=== PATIENT | male | born 1945 | race Caucasian/White ===

== ENCOUNTER 2017-08-13 13:25 | Inpatient (IN) | payer BC, MEDICARE ==
[~2017-08-13] VITALS: Ht 190.5 cm; Wt 153.8 kg
[~2017-08-13 13:25] MED LIST: ARTHROTEC 75 T1 EAC1 PO; CIPRO500 MG PO; DIOVAN320 MG PO; GLIMEPIRIDE2 MG PO; LEVOCETIRIZINE D5 MG; LEVOCETIRIZINE D5 MG PO; METFORMIN HCL1000 MG PO; METOPROLOL SUCC50 MG PO; OMEPRAZOLE40 MG PO; PREDNISONE20 MG PO; TERAZOSIN HCL5 MG PO; Z.0.DIOVAN HCT 3201 PO; Z.0.GLIMEPIRIDE2 MG PO; Z.0.GLUCOPHAGE500 MG PO; Z.0.QUINAPRIL HCL40 PO; Z.0.TERAZOSIN HCL5 M PO; ZOLPIDEM TARTRA10 MG PO
[2017-08-13] MEDS ORDERED: CYCLOBENZAPRINE HCL 10 MG TAB PO ONE (13:45)
[2017-08-13] MEDS ORDERED: KETOROLAC TROMETHAMINE 60 MG/2 ML VIAL IM ONE (13:45)
[2017-08-13] MEDS ORDERED: HYDROCODONE/APAP 7.5MG-325MG 1 EA TAB PO PRN (13:45)
[2017-08-13] MEDS ORDERED: IBUPROFEN 600 MG TAB PO STA (14:05)
[2017-08-13] MEDS ORDERED: KETOROLAC TROMETHAMINE 30 MG/ML VIAL IV STA (14:15)
[2017-08-13 14:24] LABS: BASOPHILS # (AUTO) 0.1 (0.0-0.1); BASOPHILS % 0.5 % (0.0-1.0); HEMATOCRIT 41.2 % (38.2-49.6); HEMOGLOBIN 13.9 g/dL (14.0-18.0); LYMPHOCYTES # (AUTO) 2.4 (1.0-3.2); LYMPHOCYTES % 19.7 % (18.0-39.1); MEAN CORPUSCULAR HEMOGLOBIN 30.3 pg (28-32); MEAN CORPUSCULAR HGB CONC 33.7 g/dL (31-35); MEAN CORPUSCULAR VOLUME 89.8 fL (81-99); MONOCYTES # (AUTO) 1.4 (0.2-0.8); MONOCYTES % 11.2 % (4.4-11.3); NEUTROPHILS # (AUTO) 8.2 (2.1-6.9); NEUTROPHILS % 67.7 % (38.7-80.0); PLATELET COUNT 110 x10e3/uL (140-360); RED BLOOD COUNT 4.59 x10e6/uL (4.3-5.7); RED CELL DISTRIBUTION WIDTH 15.9 % (11.7-14.4)
[2017-08-13 14:47] LABS: CALCIUM 8.6 mg/dL (8.4-10.2); CREATININE, SERUM 1.8 mg/dL (0.72-1.25)
[2017-08-13 14:56] LABS: CREATINE KINASE MB 1.2 ng/mL (0-5.0)
--- NOTE | 2017-08-13 15:14 | Diagnostic Imaging Report ---
PROCEDURE: Frontal and lateral views of the chest. COMPARISON: 07/02/12 INDICATIONS: FALL FINDINGS: Lines/tubes: None. Lungs: Limited by low lung volumes and body habitus. Mild right lower lung field hazy opacification, likely atelectasis or contusion. Pleura: There is no pleural effusion or pneumothorax. Heart and mediastinum: The heart and the mediastinum are unremarkable. Bones: No acute bony abnormality. IMPRESSION: Limited study. Mild right lower lung field hazy opacification, representing atelectasis or contusion. No definite evidence of displaced right sided rib fracture. Dictated by: John Guy M.D. on 08/13/2017 at 15:15 Electronically approved by: John Guy M.D. on 08/13/2017 at 15:15
[2017-08-13] MEDS ORDERED: AMIODARONE HCL 150MG 100 ML IV ONE (15:15)
[2017-08-13] MEDS: CEFTRIAXONE SOD 1 GM VIAL IV SCH (15:30)
--- NOTE | 2017-08-13 15:44 | Diagnostic Imaging Report ---
PROCEDURE:X-RAY LUMBAR SPINE, TWO VIEWS COMPARISON:None available. INDICATIONS:FALL FINDINGS: There are 5 lumbar-type vertebral bodies. The vertebral bodies are well-aligned without evidence of spondylolisthesis. There are no displaced fractures, lytic or blastic lesions. Severe degenerative changes of L3-L4, L4-L5, and L5-S1. There is loss of L5-S1 disc space. Posterior L5 pedicular fixating screws. Vascular calcifications. CONCLUSION: No definite evidence of acute displaced fracture or subluxation of lumbar spine. If there is high clinical concern for injury, consider obtaining CT or MRI. Severe degenerative changes of L4-S1. Dictated by: John Guy M.D. on 08/13/2017 at 15:44 Electronically approved by: John Guy M.D. on 08/13/2017 at 15:44
[2017-08-13] MEDS ORDERED: SODIUM CHLORIDE FLUSH 10 ML SYR INJ PRN (16:45)
[2017-08-13] MEDS ORDERED: ALBUTEROL SULF 0.083% NEB SOLN 3 ML NEB NEB SCH (16:45)
[2017-08-13] MEDS ORDERED: DEXTROSE 50% SYRINGE 50 ML IV PRN (17:30)
[2017-08-13] MEDS ORDERED: IPRATROPIUM BROMIDE 0.02% 2.5 ML NEB NEB SCH (18:00)
[2017-08-13] MEDS ORDERED: HYDROCHLOROTHIA25 MG PO (18:28)
[2017-08-13] MEDS ORDERED: GLUCOPHAGE850 MG PO (18:28)
[2017-08-13] MEDS ORDERED: LASIX40 MG PO (18:28)
--- OUTSIDE RECORDS SUMMARY | 2017-08-13 18:50 | XMS REPORT ---
Author Author [facility] Address Unknown Phone Unavailable Care Team Providers Care Senior Designer Name Role Phone MIKA VILLAR Unavailable Unavailable Problems This patient has no known problems. Allergies, Adverse Reactions, Alerts This patient has no known allergies or adverse reactions. Medications This patient has no known medications. Results Test Description Test Time Test Comments Text Results Atomic Results Result Comments CHEST 2 VIEWS [place] [address] Patient Name: BOO BLAKE MR #: [id number] : 1945 Age/Sex: 72/M Req # : [id number] Adm Physician: Ordered by: JASMIN MANRIQUEZ DIRECT CASTING OPERATOR Report #: [id number] Location: ER Room/Bed: Procedure: [id number] DX/CHEST 2 VIEWS Exam Date: 08/13/17 Exam Time: 1444 REPORT STATUS: Signed PROCEDURE: Frontal and lateral views of the chest. COMPARISON: 07/02/12 INDICATIONS: FALL FINDINGS: Lines/tubes: None. Lungs: Limited by low lung volumes and body habitus. Mild right lower lung field hazy opacification, likely atelectasis or contusion. Pleura: There is no pleural effusion or pneumothorax. Heart and mediastinum: The heart and the mediastinum are unremarkable. Bones: No acute bony abnormality. IMPRESSION: Limited study. Mild right lower lung field hazy opacification, representing atelectasis or contusion. No definite evidence of displaced right sided rib fracture. Dictated by: John Palomo M.D. on 08/13/2017 at 15:15 Electronically approved by: John Palomo M.D. on 08/13/2017 at 15:15 Dictated By: JOHN PALOMO MD 14 Transcribed By: MATIAS on 08/13/171514 COPY TO: JASMIN MANRIQUEZ DIRECT CASTING OPERATOR SP LUMBAR AP LATERAL 2-3VWS [place] [address] Patient Name: BOO BLAKE MR #: [id number] : 1945 Age/Sex: 72/M Req #: [id number] Adm Physician: Ordered by: JASMIN MANRIQUEZ DIRECT CASTING OPERATOR Report #: [id number] Location: ER Room/Bed: Procedure: [id number] DX/SP LUMBAR AP LATERAL 2-3VWS Exam Date: 08/13/17 Exam Time: 1430 REPORT STATUS: Signed PROCEDURE : X-RAY LUMBAR SPINE, TWO VIEWS COMPARISON: None available. INDICATIONS: FALL FINDINGS: There are 5 lumbar-type vertebral bodies. The vertebral bodies are well-aligned without evidence of spondylolisthesis. There are no displaced fractures, lytic or blastic lesions. Severe degenerative changes of L3-L4, L4-L5, and L5-S1. There is loss of L5-S1 disc space. Posterior L5 pedicular fixating screws. Vascular calcifications. CONCLUSION: No definite evidence of acute displaced fracture or subluxation of lumbar spine. If there is high clinical concern for injury, consider obtaining CT or MRI. Severe degenerative changes of L4-S1. Dictated by: John Palomo M.D. on 08/13/2017 at 15 :44 Electronically approved by: John Palomo M.D. on 08/13/2017 at 15: 44 Dictated By: JOHN PALOMO MD 1544 Transcribed By: MATIAS on 08/13/17 1544 COPY TO: JASMIN MANRIQUEZ NP
[2017-08-13] MEDS: ALBUTEROL SULF 0.083% NEB SOLN 3 ML NEB NEB SCH ×2 (19:00→23:30)
[2017-08-13] MEDS: IPRATROPIUM BROMIDE 0.02% 2.5 ML NEB NEB SCH (19:00)
[2017-08-13] MEDS ORDERED: ACETAMINOPHEN 325 MG TAB PO PRN (19:30)
[2017-08-13 20:27] LABS: BILIRUBIN,URINE NEGATIVE (NEGATIVE); CLARITY,URINE SL CLOUDY (CLEAR); COLOR,URINE YELLOW (YELLOW); KETONES,URINE TRACE (NEGATIVE); LEUKOCYTE ESTERASE ,URINE NEGATIVE (NEGATIVE); NITRITE,URINE NEGATIVE (NEGATIVE); PROTEIN,URINE DIPSTICK 2+ (NEGATIVE); URINE UROBILINOGEN 0.2 mg/dL (0.2 - 1)
[2017-08-13 20:38] LABS: AMORPHOUS SEDIMENT,URINE MODERATE (FEW); BACTERIA,URINE MODERATE /HPF; EPITHELIAL CELLS,URINE RARE /LPF
[2017-08-13] MEDS: AZITHROMYCIN 500MG/NS 250 ML 250 ML IV SCH (21:15)
[2017-08-13] MEDS: INSULIN LISPRO 100 UNIT/1 ML 3ML VIAL SQ SCH (21:49)
[2017-08-13 22:43] LABS: CREATINE KINASE MB 1.7 ng/mL (0-5.0)
[2017-08-14] VITALS (9 sets, daily range): BP systolic 109–144; BP diastolic 53–72
[2017-08-14] MEDS: IPRATROPIUM BROMIDE 0.02% 2.5 ML NEB NEB SCH ×4 (01:00→19:50)
[2017-08-14] MEDS: CEFTRIAXONE SOD 1 GM VIAL IV SCH ×2 (02:51→15:18)
[2017-08-14] MEDS: ALBUTEROL SULF 0.083% NEB SOLN 3 ML NEB NEB SCH ×5 (03:00→23:00)
[2017-08-14 07:29] LABS: CREATINE KINASE MB 2.2 ng/mL (0-5.0)
[2017-08-14] MEDS: INSULIN LISPRO 100 UNIT/1 ML 3ML VIAL SQ SCH ×4 (07:30→21:36)
[2017-08-14] MEDS: ACETAMINOPHEN 325 MG TAB PO PRN ×4 (09:21→23:35)
[2017-08-14] MEDS ORDERED: SODIUM CHLORIDE 0.9% 250ML 250 ML ONE (09:27)
[2017-08-14] MEDS: AZITHROMYCIN 500MG/NS 250 ML 250 ML IV SCH (10:29)
[2017-08-14 15:21] LABS: CREATINE KINASE MB 1.9 ng/mL (0-5.0)
[2017-08-14 15:45] LABS: BASOPHILS # (AUTO) 0.1 (0.0-0.1); BASOPHILS % 0.3 % (0.0-1.0); HEMATOCRIT 38.4 % (38.2-49.6); LYMPHOCYTES # (AUTO) 2.8 (1.0-3.2); LYMPHOCYTES % 17.5 % (18.0-39.1); MEAN CORPUSCULAR HEMOGLOBIN 30.4 pg (28-32); MEAN CORPUSCULAR HGB CONC 33.9 g/dL (31-35); MEAN CORPUSCULAR VOLUME 89.7 fL (81-99); MONOCYTES # (AUTO) 1.5 (0.2-0.8); MONOCYTES % 9.3 % (4.4-11.3); NEUTROPHILS # (AUTO) 11.5 (2.1-6.9); NEUTROPHILS % 72.2 % (38.7-80.0); RED BLOOD COUNT 4.28 x10e6/uL (4.3-5.7)
[2017-08-14] MEDS ORDERED: SODIUM CHLORIDE 0.9% 250ML 250 ML IV ONE ×2 (15:45→16:45)
[2017-08-14] MEDS ORDERED: VANCOMYCIN 1GM/NS 250 ML 250 ML IV ONE (15:45)
[2017-08-14] MEDS ORDERED: KETOROLAC TROMETHAMINE 30 MG/ML VIAL IV PRN (15:45)
[2017-08-14 15:46] LABS: PLATELET COUNT 57 x10e3/uL (140-360)
[2017-08-14] MEDS ORDERED: ACETAMINOPHEN 1000 MG/100 ML IV STA (15:49)
[2017-08-14 15:56] LABS: ANION GAP 13.9 mmol/L (8-16); CREATININE, SERUM 1.7 mg/dL (0.72-1.25); POTASSIUM 3.9 mmol/L (3.5-5.1)
[2017-08-14] MEDS ORDERED: ACETAMINOPHEN 1000 MG/100 ML IV PRN (16:00)
[2017-08-14] MEDS: SODIUM CHLORIDE 0.9% 1000ML 1,000 ML IV SCH ×2 (16:12→23:18)
[2017-08-14] MEDS ORDERED: METFORMIN HCL 850 MG TAB PO SCH (17:00)
[2017-08-14] MEDS: METFORMIN HCL 500 MG TAB PO SCH (18:01)
[2017-08-14] MEDS: GLIMEPIRIDE 2 MG TAB PO SCH (18:01)
[2017-08-14] MEDS ORDERED: ALLOPURINOL300 MG PO (18:33)
[2017-08-14] MEDS ORDERED: MONTELUKAST SOD10 MG PO (18:33)
[2017-08-14] MEDS ORDERED: TRADJENTA5 MG PO (18:33)
[2017-08-15] VITALS (7 sets, daily range): BP systolic 108–172; BP diastolic 55–70
[2017-08-15] MEDS: ALBUTEROL SULF 0.083% NEB SOLN 3 ML NEB NEB SCH ×6 (02:15→23:30)
[2017-08-15] MEDS: IPRATROPIUM BROMIDE 0.02% 2.5 ML NEB NEB SCH ×5 (02:15→19:27)
[2017-08-15] MEDS: ACETAMINOPHEN 325 MG TAB PO PRN ×5 (04:38→22:57)
[2017-08-15] MEDS: SODIUM CHLORIDE 0.9% 1000ML 1,000 ML IV SCH ×3 (05:46→21:09)
[2017-08-15] MEDS: INSULIN LISPRO 100 UNIT/1 ML 3ML VIAL SQ SCH ×4 (07:30→21:00)
[2017-08-15 07:38] LABS: BASOPHILS # (AUTO) 0.1 (0.0-0.1); BASOPHILS % 0.2 % (0.0-1.0); HEMATOCRIT 37.7 % (38.2-49.6); HEMOGLOBIN 12.7 g/dL (14.0-18.0); LYMPHOCYTES # (AUTO) 2.3 (1.0-3.2); LYMPHOCYTES % 11.3 % (18.0-39.1); MEAN CORPUSCULAR HEMOGLOBIN 30.7 pg (28-32); MEAN CORPUSCULAR HGB CONC 33.7 g/dL (31-35); MEAN CORPUSCULAR VOLUME 91.1 fL (81-99); MONOCYTES # (AUTO) 1.7 (0.2-0.8); MONOCYTES % 8.4 % (4.4-11.3); NEUTROPHILS # (AUTO) 16.1 (2.1-6.9); NEUTROPHILS % 79.2 % (38.7-80.0); RED BLOOD COUNT 4.14 x10e6/uL (4.3-5.7); RED CELL DISTRIBUTION WIDTH 16.6 % (11.7-14.4)
[2017-08-15 07:42] LABS: PLATELET COUNT 38 x10e3/uL (140-360)
[2017-08-15 07:59] LABS: ANION GAP 14.1 mmol/L (8-16); CALCIUM 7.7 mg/dL (8.4-10.2); CREATININE, SERUM 2.05 mg/dL (0.72-1.25); POTASSIUM 4.1 mmol/L (3.5-5.1)
[2017-08-15] MEDS ORDERED: QUINAPRIL HCL 20 MG TAB PO SCH (09:00)
[2017-08-15] MEDS ORDERED: NON-FORMULARY MEDICATION (Quinapril Hcl 40 MG) PO SCH (09:00)
[2017-08-15] MEDS ORDERED: VALSARTAN PO SCH (09:00)
[2017-08-15] MEDS ORDERED: HYDROCHLOROTHIAZIDE 25 MG TAB PO SCH (09:00)
[2017-08-15] MEDS ORDERED: TERAZOSIN HCL 5 MG CAP PO SCH (09:00)
[2017-08-15] MEDS ORDERED: VALSARTAN 160 MG TAB PO SCH (09:00)
[2017-08-15] MEDS ORDERED: AZITHROMYCIN 500MG/NS 250 ML 250 ML IV SCH (09:00)
[2017-08-15 09:02] LABS: ANISOCYTOSIS SLIG; HYPOCHROMASIA SLIGHT; PLATELET ESTIMATE MARKEDLY DECREASED; PLATELET MORPHOLOGY COMMENT FEW GIANT; POIKILOCYTOSIS SLIGHT; RBC MORPHOLOGY COMMENT ABNORMAL
[2017-08-15] MEDS: CEFTRIAXONE SOD 1 GM VIAL IV SCH (09:02)
[2017-08-15] MEDS: GLIMEPIRIDE 2 MG TAB PO SCH ×2 (09:10→17:20)
[2017-08-15] MEDS: METFORMIN HCL 500 MG TAB PO SCH ×2 (09:10→17:20)
[2017-08-15] MEDS: FUROSEMIDE 40 MG TAB PO SCH (09:11)
[2017-08-15] MEDS: METOPROLOL SUCCINATE 50 MG TAB XL PO SCH (09:11)
[2017-08-15 09:37] LABS: EOSINOPHILS % (MANUAL) 4 % (0-7); LYMPHOCYTES % (MANUAL) 8 % (19-48); MONOCYTES % (MANUAL) 5 % (3.4-9.0); NEUTROPHILS % (MANUAL) 83 % (40-74)
[2017-08-15] MEDS: QUINAPRIL HCL 20 MG TAB PO SCH (12:00)
--- NOTE | 2017-08-15 14:12 | Consultation ---
DATE OF CONSULTATION: August 15, 2017 INFECTIOUS DISEASE CONSULTATION HISTORY OF PRESENT ILLNESS: Christopher is a 72-year-old gentleman with a BMI of 40.6, about 325 pounds. Apparently he fell on Saturday, today is , when he was at home at about 7 o'clock in the morning. He gradually used his back and crawled little by little to the living room. His showed up about 2 o'clock. That is where she found him. So, they called 01-04-, and patient was transferred here. He does remember the fall. No loss of consciousness. He did not hit his head or any particular part of his body. He states he just dropped and his knees just pretty much gave up. Upon admission the chest x-ray, blood culture, urine culture and x-ray of the back were done. Blood culture, urine culture are negative. Chest x-ray suggested mild right lower lung field hazy opacification representing atelectasis or contusion, no definite evidence of displaced right-sided rib fracture, and his L-spine x-ray showed no definite evidence of acute displaced fracture or subluxation over the L-spine and there was a concern if you have a high clinical concern of injury, may consider C2 MRI and also showed that he has severe degenerative changes of the L4 and S1. Right now patient is in the bed, complaining of back pain, limited range of motion. Also received 1 dose of vancomycin and was placed on Zithromax and Rocephin, and followup labs from this morning showed platelet dropped to 38 with the white count jumping to 20.3. He had a 101.4 temperature. Therefore, Infectious Disease was consulted. When I talked to Mr. White this morning, he stated that he had a history of spinal fusion on his back and that is where the place that it hurts. He has no other complaints. PAST MEDICAL HISTORY: Including hypertension, diabetes, renal insufficiency. ALLERGIES: THERE ARE NO KNOWN DRUG ALLERGIES. LABORATORY STUDIES: Sodium 136, potassium 4.1, chloride 101, CO2 is 25, BUN 50, creatinine 2.05. His white count is 20.31, hemoglobin 12.7, platelet 38. His urine culture is negative. His blood culture is negative. RADIOLOGY STUDIES: As mentioned above. REVIEW OF SYSTEMS: Complaining of back pain. No nausea, vomiting, fever, chills, chest pain. No shortness of breath. PHYSICAL EXAMINATION GENERAL: Seems alert and oriented, but he seems weak and sleepy. It could have been secondary to pain medication he had received, which per my discussion with the nurse, patient received Dilaudid recently. He is comfortable in bed. Pain seems to be controlled. VITAL SIGNS: Temperature 101.4 max with a 98.6 about 11:45 this morning. Pulse is 115, respiration is 22, blood pressure is 118/56. CVS: S1/S2. CHEST: Equal expansion. No acute distress. Clear to auscultation. ABDOMEN: Soft, nontender. No distention. Morbidly obese. Bowel sounds positive 4 quadrants. HEENT: Moist. No pallor, no cyanosis. EXTREMITIES: Moves all. Some edema. Very weak. Painful movement in the bed. ASSESSMENT AND PLAN: This is a 72-year-old male who is status post fall with back pain and increasing white counts and drop in his platelet while he was on antibiotics with fever. History of diabetes, hypertension, chronic renal insufficiency. Workup so far did not show any significant abnormality except possibility of a pneumonia. Blood culture, urine cultures are negative. Clinically no acute distress. We stopped the antibiotics. Will do a CT of the T\T\L spine and also recheck the CBC, BMP for tomorrow while patient is off the antibiotics. Further management of this patient is based on further findings on the laboratory and physical examination as more information starts coming in. This case was discussed with Dr. Basurto in detail, and I want to thank you for this kind consult and allowing us to participate in the medical needs of this gentleman. Dictated by: JACLYN Ritter Job#: [id number] EV
--- NOTE | 2017-08-15 15:13 | Diagnostic Imaging Report ---
PROCEDURE: Frontal and lateral views of the chest. COMPARISON: Chest x-ray 08/13/2017. INDICATIONS: PNEUMONIA FINDINGS: Lines/tubes: None. Lungs: Lungs are hypoinflated. Worsening diffuse multifocal airspace opacities. Pleura: New small to moderate pleural effusion. Heart and mediastinum: Mild cardiomegaly. Bones: No acute bony abnormality. IMPRESSION: 1. Hypoinflated lungs. 2. New multifocal airspace opacities, which may represent multifocal pneumonia versus pulmonary edema. Dictated by: Abraham Ambrose M.D. on 08/15/2017 at 15:13 Electronically approved by: Abraham Ambrose M.D. on 08/15/2017 at 15:13
--- NOTE | 2017-08-15 16:06 | Diagnostic Imaging Report ---
History: Fall, back pain Comparison studies: X-ray of the lumbar spine 08/13/2017. X-ray of the lumbar spine 10/10/2007 Technique:: Axial were obtained through the thoracic and lumbar regions. Coronal and sagittal images reconstructed from the axial data. Intravenous contrast: None Findings: Motion artifact and patient body habitus limits evaluation of the lumbar spine. Alignment: Normal thoracic kyphosis. Normal lumbar lordosis.. No scoliosis. Soft tissues: No abnormalities.. Paraspinal muscles: Unremarkable Spinal cord: Can not be evaluated. Vertebrae: No fractures, infection or neoplasm. Posterior fusion from L4 through S1, stable from previous exam. Thoracic degenerative changes: Anteriorly projecting osteophytes. Grossly patent canal Lumbar degenerative changes: Straightening of the lumbar lordosis. Transitional vertebra at the lower lumbar spine . At L3-L4 disc degeneration diffuse disc bulge and moderate facet hypertrophy results in moderate canal stenosis and moderate bilateral foraminal narrowing. At L4-L5 disc degeneration with diffuse disc bulge and moderate bilateral facet hypertrophy results in moderate canal stenosis and severe right and moderate left foraminal narrowing. At L5-S1 diffuse disc bulge results in mild canal stenosis and moderate bilateral foraminal narrowing. 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 Degenerative changes of the bilateral SI joints. Atherosclerotic changes of the abdominal aorta. Partially visualized bilateral pleural effusions more prominent on the right. Adjacent atelectasis on the right lung base. IMPRESSION: 1. No acute fracture or subluxation of the thoracic or lumbar spine. 2. Stable degenerative changes of the lumbar spine. Signed by: DR Jamie Andrade M.D. on 08/15/2017 4:03 PM
[2017-08-15] MEDS: TERAZOSIN HCL 5 MG CAP PO SCH (21:00)
[2017-08-16] VITALS (7 sets, daily range): BP systolic 104–148; BP diastolic 44–64
[2017-08-16] MEDS ORDERED: VANCOMYCIN 1GM/NS 250 ML 500 ML IV ONE
[2017-08-16] MEDS ORDERED: CEFTRIAXONE SOD 1 GM VIAL IV SCH
[2017-08-16] MEDS ORDERED: VANCOMYCIN 1GM/NS 250 ML 250 ML IV NR (01:00)
[2017-08-16] MEDS: ALBUTEROL SULF 0.083% NEB SOLN 3 ML NEB NEB SCH ×6 (03:08→23:50)
[2017-08-16] MEDS: IPRATROPIUM BROMIDE 0.02% 2.5 ML NEB NEB SCH ×6 (03:08→23:50)
--- NOTE | 2017-08-16 03:29 | Diagnostic Imaging Report ---
EXAM: CHEST SINGLE (PORTABLE), AP 1 view INDICATION: Shortness of breath COMPARISON: PA and lateral view of the chest August 15, 2017 FINDINGS: LINES/TUBES: None LUNGS: Right lower lobe atelectasis/consolidation. Vascular congestion/interstitial edema. PLEURA: Stable right pleural effusion. HEART AND MEDIASTINUM: Stable enlargement of the cardiomediastinal silhouette. BONES AND SOFT TISSUES: No acute findings. IMPRESSION: No significant interval change. Signed by: Dr. Vanessa Curran M.D. on 08/16/2017 3:25 AM
--- NOTE | 2017-08-16 05:03 | Consultation ---
DATE OF CONSULTATION: August 15, 2017 PULMONARY MEDICINE CONSULT REFERRING PHYSICIAN: Dr. Ricarod REASON FOR REFERRAL: Pneumonia. HISTORY: Mr. Pollock is a pleasant 72-year-old gentleman who presented to emergency room on August 13, 2017. Patient with back pain. He also had some cough, associated with shortness of breath and fevers. Fevers have been recorded here in the hospital easily and on multiple occasions including to 103.2 today. Patient with intermittent encephalopathy and altered mental status. However, there was no head or neck pain when he came to emergency room. Chest x-ray showing difficult assessment, but atelectasis versus infiltrate at the base. Patient continued to have fevers while he was an inpatient. His white count was originally 12,000, but it has risen to 20,000. His creatinine was initially 1.8 and it has risen to 2.0 in the interim. Blood cultures no growth times 48 hours. At this point, I am consulted. Chest x-ray was repeated and demonstrated worsening of the infiltrate and probable effusion. Computed tomograms of thoracic spine confirmed presence of what looks like probable complex effusion evolving as well as pneumonia. 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 MEDICATIONS: Medication list reviewed per record. It includes allopurinol, furosemide, glimepiride, hydrochlorothiazide, Tradjenta, metformin, metoprolol, quinapril, terazosin, valsartan. No citation of any immunosuppressive medication at this time, although it is clear that at some point in the past he was on prednisone. ALLERGIES: NO KNOWN DRUG ALLERGIES. SOCIAL HISTORY: Patient reportedly seems to get smoke in the past, although he is confused and cannot provide full history. Other notes suggest he is a nonsmoker. No heavy drinking known. No drugs. 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 FAMILY HISTORY: Noncontributory. REVIEW OF SYSTEMS: Cannot get reliably as he is altered. OBJECTIVE: VITAL SIGNS: Noted as reported. Heart rate often 100s. GENERAL: No distress, oriented x1 only. HEENT: Normocephalic, atraumatic. NECK: Supple. Throat midline. LUNGS: Bilateral air entry, limited air entry, limited effort. CARDIOVASCULAR: S1, S2. No murmurs, rubs, or gallops. ABDOMEN: Soft, obese, nontender. EXTREMITIES: No clubbing, no cyanosis, there is some edema. INTEGUMENT: No rash. No necrosis. LABS: 21 white count, 37 hematocrit, platelets falling to 38,000. 4.1 potassium, 25 bicarbonate, 50 BUN, creatinine 2.05. IMPRESSION AND PLAN: 1. Severe pneumonia, likely atypical type. 2. Evolved and complicated pleural effusion. 3. Splenectomy state. 4. Reported idiopathic thrombocytopenic purpura. 5. Diabetes. 6. Hypertension. 7. Primary hyperparathyroidism. 8. History of obesity. 9. Degenerative joint disease of back. Give low-dose intravenous fluid only, limit to lowest dose to preserve urine in kidneys. High-dose antibiotics indicated. Patient very large, recommend surgical consult for chest tube under anesthesia. Patient may need future decortication based on chest tube results. Deep venous thrombosis prophylaxis. Patient with high mortality condition if this cannot be reversed. Thank you very much, Dr. Ricardo for this consult. Do not hesitate to contact me if I can help in any way. Job#: [id number] DR AHMADI
[2017-08-16] MEDS: ACETAMINOPHEN 325 MG TAB PO PRN (05:05)
[2017-08-16 06:54] LABS: BASOPHILS # (AUTO) 0.1 (0.0-0.1); BASOPHILS % 0.4 % (0.0-1.0); HEMATOCRIT 39.4 % (38.2-49.6); HEMOGLOBIN 12.6 g/dL (14.0-18.0); LYMPHOCYTES # (AUTO) 3.4 (1.0-3.2); LYMPHOCYTES % 20.3 % (18.0-39.1); MEAN CORPUSCULAR HEMOGLOBIN 30.3 pg (28-32); MEAN CORPUSCULAR VOLUME 94.7 fL (81-99); MONOCYTES # (AUTO) 1.2 (0.2-0.8); MONOCYTES % 7.2 % (4.4-11.3); NEUTROPHILS # (AUTO) 11.9 (2.1-6.9); RED BLOOD COUNT 4.16 x10e6/uL (4.3-5.7); RED CELL DISTRIBUTION WIDTH 17.2 % (11.7-14.4)
[2017-08-16 06:59] LABS: PLATELET COUNT 25 x10e3/uL (140-360)
[2017-08-16 07:12] LABS: INR 1.01; PROTHROMBIN TIME 12.5 seconds (11.9-14.5)
[2017-08-16 07:20] LABS: ALBUMIN 2.2 g/dL (3.5-5.0); ALBUMIN/GLOBULIN RATIO 0.6 (0.8-2.0); ANION GAP 13.1 mmol/L (8-16); CALCIUM 7.4 mg/dL (8.4-10.2); CREATININE, SERUM 2.26 mg/dL (0.72-1.25); MAGNESIUM 1.7 MG/DL (1.3-2.1); PHOSPHORUS 4.2 MG/DL (2.3-4.7); POTASSIUM 4.1 mmol/L (3.5-5.1)
[2017-08-16] MEDS: INSULIN LISPRO 100 UNIT/1 ML 3ML VIAL SQ SCH ×4 (07:30→21:00)
[2017-08-16] MEDS: METFORMIN HCL 500 MG TAB PO SCH ×2 (08:00→17:00)
[2017-08-16] MEDS: GLIMEPIRIDE 2 MG TAB PO SCH ×2 (08:00→17:00)
[2017-08-16] MEDS: METOPROLOL SUCCINATE 50 MG TAB XL PO SCH (09:00)
[2017-08-16] MEDS: FUROSEMIDE 40 MG TAB PO SCH (09:00)
--- NOTE | 2017-08-16 10:38 | Diagnostic Imaging Report ---
Exam: Head CT without contrast History: Confusion Comparison studies: None Technique: Axial images were obtained from the skull base to the vertex. Coronal and sagittal images reconstructed from the axial data. Intravenous contrast: None Findings: Scalp: No abnormalities. Bones: No fractures, blastic or lytic lesions. Brain sulci: Mildly prominent. Ventricles: Normal in size and configuration. No hydrocephalus. Extra-axial spaces: Mildly prominent extra-axial space of CSF density at the posterior left frontal convexity near the vertex may be an incidental congenital arachnoid cyst. No other mass or fluid collection. Parenchyma: A few subtle hypodensities in the supratentorial white matter are nonspecific but most compatible with chronic small vessel ischemic changes. No mass, acute hemorrhage or acute or chronic cortical vascular insults. Sellar/suprasellar region: No abnormalities. Craniocervical junction: Patent foramen magnum. No Chiari one malformation. Incidental findings: Atherosclerotic calcifications in the carotid siphons and left intradural vertebral artery. Intraocular lens replacements related to previous cataract surgery. Right maxillary sinus alveolar recess retention cyst. IMPRESSION: No acute abnormalities. Chronic findings: 1. Mild age-related generalized volume loss. 2. Mild supratentorial microvascular ischemic changes. Signed by: Dr. Spencer Razo M.D. on 08/16/2017 10:34 AM
--- NOTE | 2017-08-16 11:09 | Diagnostic Imaging Report ---
PROCEDURE: CT CHEST WITHOUT CONTRAST CT scan of the chest WITHOUT intravenous contrast, using standard protocol. TECHNIQUE: The chest was scanned utilizing a multidetector helical scanner from the apex to the level of the adrenal glands. No IV contrast was administered. Coronal and sagittal multiplanar reformations were obtained. DLP: 1892.86 mGy-cm COMPARISON: None. INDICATIONS: PNEUMONIA FINDINGS: Lines/tubes: None. Lungs and Airways: Moderate pulmonary edema. There is a right lower lobe consolidation. Pleura: There is a moderate right pleural effusion. Heart and mediastinum: Only the left lobe and isthmus of the thyroid gland is visualized. No significant mediastinal, hilar or axillary lymphadenopathy is seen. The heart is enlarged. There is aortic valvular calcification as well as mitral annulus calcification. Calcification within the aorta. Soft tissues: Normal. Abdomen: The spleen is absent. Bones: Degenerative changes of the spine. IMPRESSION: 1. Cardiomegaly with moderate interstitial pulmonary edema. 2. Right lower lobe consolidation. 3. Moderate right pleural effusion. Jose Alejandro Doshi D.O. Dictated by: Jose Alejandro Doshi D.O. on 08/16/2017 at 11:10 Electronically approved by: Jose Alejandro Doshi D.O. on 08/16/2017 at 11:10
--- NOTE | 2017-08-16 11:41 | Diagnostic Imaging Report ---
EXAM: CT Abdomen WITHOUT contrast INDICATION: \S\R/O SPLENECTOMY \[id number] \S\[id number] \S\Y COMPARISON: None available. CT abdomen/pelvis report dated 08/02/2011 was reviewed. TECHNIQUE: Abdomen was scanned utilizing a multidetector helical scanner from the lung base to the iliac crest without administration of IV contrast. Absence of intravenous contrast decreases sensitivity for detection of focal lesions and vascular pathology. Coronal and sagittal reformations were obtained. Routine protocol was performed. IV CONTRAST: None ORAL CONTRAST: Water COMPLICATIONS: None RADIATION DOSE: Total DLP: 1892.86 mGy*cm Estimated effective dose: (DLP x 0.015 x size factor) mSv CTDIvol has been reviewed. It is below the limits set by the Radiation Protocol Committee (RPC). FINDINGS: Limited study due to streak artifacts and lack of intravenous contrast. LINES and TUBES: None. LOWER THORAX: Bibasilar consolidation, right more than left. Possible trace right pleural effusion. Heart is borderline enlarged. HEPATOBILIARY: Hepatomegaly. Unenhanced liver is unremarkable. No biliary ductal dilation. GALLBLADDER: Surgically absent. SPLEEN: Absent. PANCREAS: No focal masses or ductal dilatation. ADRENALS: Approximately 3.6 x 2.8 cm fat-containing left adrenal lesion, representing a myelolipoma. No right adrenal nodule. KIDNEYS/URETERS: Atrophic left kidney. No hydronephrosis. Left renal vascular calcifications. Limited for evaluation of renal parenchyma without intravenous contrast. There is a 6 cm calculus within left renal pelvis (series 6, image 45). Bilateral nonspecific mild perinephric stranding. GI TRACT: Bowel loops are unremarkable. No small bowel obstruction. LYMPH NODES: No lymphadenopathy. VESSELS: Mild atherosclerotic desiccation of abdominal aorta. PERITONEUM / RETROPERITONEUM: No free air or fluid. BONES: Degenerative changes of lumbar spine. Partially visualized posterior sacral fusion. SOFT TISSUES: Unremarkable. IMPRESSION: 1. Bibasilar lung consolidations, right more than left, representing atelectasis and/or aspiration/pneumonia. 2. Absent spleen. 3. Fat-containing left adrenal mass, representing a myelolipoma. 4. Atrophic left kidney. There is a 6 mm nonobstructive calculus within left renal pelvis. Signed by: Dr. John Guy MD on 08/16/2017 11:38 AM
[2017-08-16 11:56] LABS: ABG PH 7.19 (7.31-7.41)
[2017-08-16 11:57] LABS: ABG PCO2 66 mmHg (41-51)
[2017-08-16 11:58] LABS: ABG HCO3 25 mmol/L (23-28); ABG PO2 90 mmHg (80-105)
[2017-08-16] MEDS: QUINAPRIL HCL 20 MG TAB PO SCH (12:00)
[2017-08-16] MEDS ORDERED: MEROPENEM 500 MG VIAL IV SCH (12:30)
[2017-08-16 13:33] LABS: ABG PH 7.22 (7.31-7.41)
[2017-08-16 13:34] LABS: ABG HCO3 25 mmol/L (23-28); ABG PCO2 60 mmHg (41-51); ABG PO2 184 mmHg (80-105)
[2017-08-16] MEDS ORDERED: ACETAMINOPHEN 650 MG SUPP PR PRN (14:15)
[2017-08-16] MEDS ORDERED: VANCOMYCIN 1GM/NS 250 ML 250 ML IV SCH (16:15)
[2017-08-16] MEDS: METHYLPREDNISOLONE SOD SUCC 40 MG/ML VIAL IV SCH (17:00)
[2017-08-16] MEDS: AMPICILLIN SOD 2 GM/NS 100ML 100 ML IV SCH (17:00)
[2017-08-16] MEDS: CEFTRIAXONE SOD 1 GM VIAL IV SCH (17:02)
[2017-08-16] MEDS: ACYCLOVIR SODIUM 750 MG in SODIUM CHLORIDE 0.9% 250ML 250 ML IV SCH (17:45)
[2017-08-16] MEDS ORDERED: AZITHROMYCIN 500MG/NS 250 ML 250 ML IV SCH (18:00)
--- NOTE | 2017-08-16 18:55 | Progress Note ---
DATE: INFECTIOUS DISEASE PROGRESS NOTE SUBJECTIVE: Mr. Pollock, who came in Saturday, we did see him yesterday and he was alert and oriented yesterday, but apparently today he is lethargic. I met with the and had the extensive history. Apparently the patient has been sick for the last week since Saturday with fever and chills. Then he had fever Saturday, fever Saturday and Saturday. Saturday when she left he was okay, but she came back and he was on the floor. He told her to call . So, he came to the hospital Saturday, when he was brought in. We were consulted on August 15. At that time he was alert, oriented, and his workup was suggestive of pneumonia, but today he is lethargic and when I examined him today, his neck is stiff. His laboratory data, also the problem is his blood cultures are negative so far but his platelet is 25. I did discuss with Dr. Elizabeth, and when he first came his platelet was 110, dropped to 25 today. His PT is 12.5, his INR 1.1 and PTT is 36. OBJECTIVE GENERAL: He is lethargic. VITAL SIGNS: Stable. Temperature 100.1. T-max 103.2. HEENT: Normocephalic. NECK: Stiff. CHEST: A few crackles. HEART: S1 and S2. No S3 or S4, no murmur. ABDOMEN: Soft. IMPRESSION 1. 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 Will put him on vancomycin, Rocephin, ampicillin and acyclovir. We need an LP. However, his platelet is 25. Discussed with Dr. Elizabeth. We can transfuse him and we need to get up to more than 100, which is going to be an issue. I am going to add some steroid. 2. He also has pneumonia on the CT of his abdomen, which could be aspiration versus that is what the problem is. 3. Acute tubular necrosis on chronic kidney disease. 4. Obesity. 5. Status post splenectomy. 6. Idiopathic thrombocytopenic purpura. 7. Diabetes. 8. Hypertension. 9. Hyperparathyroidism. Will follow. Job#: [id number] EV
[2017-08-16] MEDS ORDERED: ACYCLOVIR SODIUM 750 MG in SODIUM CHLORIDE 0.9% 250ML 250 ML IV SCH (21:00)
[2017-08-16] MEDS: TERAZOSIN HCL 5 MG CAP PO SCH (21:00)
[2017-08-16] MEDS: SODIUM CHLORIDE 0.9% 1000ML 1,000 ML IV SCH (21:59)
[2017-08-16] MEDS ORDERED: AMPICILLIN SOD 2 GM/NS 100ML 100 ML IV SCH (22:00)
[2017-08-16] MEDS ORDERED: AMPICILLIN SOD 2 GM/NS 100ML 2 G in AMPICILLIN SOD 2 GM/NS 100ML 100 ML IV SCH (22:00)
--- NOTE | 2017-08-16 23:52 | Progress Note ---
DATE: August 16, 2017 PULMONARY MEDICINE PROGRESS NOTE SUBJECTIVE: Mr. Pollock was seen and examined at bedside. He continues to have worsening encephalopathy. Multiple blood gas analyses were performed showing continued hypercapnic respiratory failure and this intermittent encephalopathy. Discussion made after CT scan was performed where platelets were seemed to be dropped. Consideration for chest tube versus thoracentesis pleural effusion. Patient with 91% oxygen saturation on 3 liters per minute, flow early before BiPAP was started. REVIEW OF SYSTEMS: Cannot get as he is altered. OBJECTIVE: VITAL SIGNS: Afebrile, vital signs noted per record. Fevers mildly improved hopefully. GENERAL: Patient looked very bad, encephalopathic . LUNGS: Limited air entry. EXTREMITIES: There was leg edema. LABS: 55 BUN, 2.3 creatinine. 24 bicarbonate, 4.1 potassium. 17 white count, 39 hematocrit, and 25,000 platelets. IMPRESSION AND PLAN: 1. Typical pneumonia. 2. Parapneumonic pleural effusion, evolving. 3. Possible meningitis. 4. Encephalopathy. 5. Acute respiratory failure. 6. Severe obesity. 7. Zeliw-gf-wjpbwiw kidney injury. 8. History of splenectomy. High-dose antibiotics continued. Discussed with . Discussed with surgery. Multiple re-evaluations . Patient may need to be intubated. Will follow along closely. Some intravenous fluids and follow up kidney output. Greater than 30 minutes in direct care today, multiple evaluations. Job#: [id number]
[2017-08-17] VITALS (36 sets, daily range): BP systolic 83–119; BP diastolic 39–107
[2017-08-17] MEDS: AMPICILLIN SOD 2 GM/NS 100ML 100 ML IV SCH ×2 (00:08→10:44)
[2017-08-17] MEDS ORDERED: SODIUM CHLORIDE 0.9% 1000ML 1,000 ML IV ONE ×2 (01:15)
[2017-08-17] MEDS: ALBUTEROL SULF 0.083% NEB SOLN 3 ML NEB NEB SCH ×6 (03:55→22:50)
[2017-08-17] MEDS: IPRATROPIUM BROMIDE 0.02% 2.5 ML NEB NEB SCH ×6 (03:55→22:40)
[2017-08-17] MEDS: CEFTRIAXONE SOD 1 GM VIAL IV SCH ×2 (04:07→18:08)
[2017-08-17] MEDS: ACYCLOVIR SODIUM 750 MG in SODIUM CHLORIDE 0.9% 250ML 250 ML IV SCH (04:22)
[2017-08-17] MEDS ORDERED: SODIUM CHLORIDE 0.9% 250ML 250 ML ONE (05:52)
[2017-08-17 06:20] LABS: BASOPHILS % 0.3 % (0.0-1.0); HEMATOCRIT 36.7 % (38.2-49.6); HEMOGLOBIN 11.3 g/dL (14.0-18.0); LYMPHOCYTES # (AUTO) 1.4 (1.0-3.2); LYMPHOCYTES % 10.6 % (18.0-39.1); MEAN CORPUSCULAR HEMOGLOBIN 29.6 pg (28-32); MEAN CORPUSCULAR HGB CONC 30.8 g/dL (31-35); MEAN CORPUSCULAR VOLUME 96.1 fL (81-99); MONOCYTES # (AUTO) 0.7 (0.2-0.8); MONOCYTES % 5.3 % (4.4-11.3); NEUTROPHILS # (AUTO) 10.4 (2.1-6.9); NEUTROPHILS % 81.8 % (38.7-80.0); RED BLOOD COUNT 3.82 x10e6/uL (4.3-5.7)
[2017-08-17 06:26] LABS: PLATELET COUNT 14 x10e3/uL (140-360)
--- NOTE | 2017-08-17 06:36 | Diagnostic Imaging Report ---
EXAM: CHEST SINGLE (PORTABLE), AP 1 view INDICATION: Pneumonia COMPARISON: AP view of the chest August 16, 2017 FINDINGS: LINES/TUBES: None LUNGS: Right lower lobe atelectasis/consolidation. Vascular congestion/interstitial edema. PLEURA: Small right pleural effusion. HEART AND MEDIASTINUM: Stable enlargement. BONES AND SOFT TISSUES: No acute findings. IMPRESSION: No significant interval change. Signed by: Dr. Vanessa Curran M.D. on 08/17/2017 6:32 AM
[2017-08-17 06:51] LABS: ALBUMIN 2.1 g/dL (3.5-5.0); ALBUMIN/GLOBULIN RATIO 0.6 (0.8-2.0); ANION GAP 21.7 mmol/L (8-16); CALCIUM 7.1 mg/dL (8.4-10.2)
[2017-08-17 07:28] LABS: CREATININE, SERUM 3.48 mg/dL (0.72-1.25)
[2017-08-17 07:29] LABS: POTASSIUM 5.7 mmol/L (3.5-5.1)
[2017-08-17] MEDS: GLIMEPIRIDE 2 MG TAB PO SCH ×2 (07:51→16:04)
[2017-08-17] MEDS: METFORMIN HCL 500 MG TAB PO SCH (07:51)
[2017-08-17] MEDS: INSULIN LISPRO 100 UNIT/1 ML 3ML VIAL SQ SCH ×4 (07:52→21:00)
[2017-08-17] MEDS ORDERED: MEROPENEM 500MG 500 MG in SODIUM CHLORIDE 0.9% 50ML 50 ML IV SCH (09:00)
[2017-08-17] MEDS: METOPROLOL SUCCINATE 50 MG TAB XL PO SCH (09:00)
[2017-08-17] MEDS: FUROSEMIDE 40 MG TAB PO SCH ×2 (09:00→12:23)
[2017-08-17] MEDS ORDERED: LIDOCAINE HCL 1% LOCAL INJ 20 ML VIAL ONE (09:08)
[2017-08-17] MEDS ORDERED: SOD POLYSTYRENE SULFONATE SUSP 15 GM/60 ML BTL PO SCH (09:15)
[2017-08-17] MEDS: METHYLPREDNISOLONE SOD SUCC 40 MG/ML VIAL IV SCH ×2 (10:45→21:00)
[2017-08-17] MEDS ORDERED: DEXTROSE 50% SYRINGE 50 ML IV SCH (11:13)
[2017-08-17] MEDS ORDERED: INSULIN REGULAR, HUMAN 100 UNIT/1 ML 3ML VIAL IV SCH (11:15)
[2017-08-17] MEDS ORDERED: SOD POLYSTYRENE SULFONATE SUSP 15 GM/60 ML BTL PR SCH (11:15)
--- NOTE | 2017-08-17 13:54 | Progress Note ---
DATE: INFECTIOUS DISEASE PROGRESS NOTE SUBJECTIVE: Mr. Pollock is in IMCU. He is currently lethargic. He is on BiPAP. Events noted. The patient does have a chest tube. No family at the bedside. His laboratory data reviewed today. He did receive the platelets. His laboratory data showed his white count is 12.75, hemoglobin 11.3, his platelet is 14 but went up to 74 after transfusion. His sodium 137, potassium 5.7, his creatinine 3.48, his glucose 284. His cultures are still no growth. PHYSICAL EXAMINATION GENERAL: He is lethargic. VITAL SIGNS: Temperature 100.0. His T-max 103.2. HEENT: He is normocephalic. NECK: Hard to assess. CHEST: A few rhonchi. HEART: S1 and S2. No S3 or S4, no murmur. ABDOMEN: Soft. Bowel sounds hypoactive. EXTREMITIES: No edema. SKIN: No rash. IMPRESSION 1. Sepsis on admission. Concerned about meningeal encephalitis. LP is not done yet. We do not have any radiologist. I am told that it is going to be Saturday. 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 He is on acyclovir for herpes simplex virus. He is on ceftriaxone and vancomycin. All antibiotics will need to be adjusted now. 2. Acute tubular necrosis with maybe underlying chronic kidney disease. Renal is following. May need to be on dialysis. 3. Obesity. 4. Pneumonia. 5. Thrombocytopenia. Patient has a history of splenectomy and history of idiopathic thrombocytopenic purpura. Prognosis is guarded. Will follow. Job#: [id number] JANICE
[2017-08-17] MEDS: SODIUM BICARBONATE 8.4% 150 ML in STERILE WATER IV SOLN 1,000 ML IV SCH (14:09)
[2017-08-17] MEDS ORDERED: SODIUM CHLORIDE 0.9% 1000ML 1,000 ML ONE (14:22)
[2017-08-17] MEDS ORDERED: ETOMIDATE 40 MG/ 20ML VIAL IV ONE (14:59)
[2017-08-17] MEDS ORDERED: WATER STERILE 10 ML VIAL ONE (14:59)
[2017-08-17] MEDS ORDERED: VECURONIUM BROMIDE FOR INJ 20 MG VIAL ONE (14:59)
--- NOTE | 2017-08-17 15:57 | Consultation ---
DATE OF CONSULTATION: August 17, 2017 REQUESTING PHYSICIAN: Dr. Riki Ricardo. REASON FOR CONSULTATION: Acute kidney injury. HISTORY OF PRESENT ILLNESS: Thank you for allowing us to participate in Mr. Pollock's case. This is a 70-year-old male with history of possible CKD stage 3, came in with a creatinine of 1.8. He apparently had a fall, was down about several hours. While he does not remember it, apparently he was awake. Chest x-ray is showing worsening pneumonia. He now has a chest tube for drainage of pleural effusion. At the time he came in, his white counts were quite high, platelet counts were dropping, and platelet transfusion was needed prior to chest tube placement. Temperature was as high as 101.4. Both infectious disease and pulmonary service were following. PCO2 have been high even on the BiPAP in the 60 range. While he has been here, he had been on HIEU inhibitors, ARBs, but at least some of the doses have been held. His white count was as high as 20,000 and platelets were down to 14,000 pretransfusion of platelets. PH is 7.19, pCO2 of 76, and pO2 of 90 this morning. K was high at 5.7 and serum CO2 of 19, creatinine 3.5 up from 1.8 on admission. BUN of 74. His urine output is progressively decreased and he made 600 mL yesterday, but it appears to be tapering off. He himself is quite drowsy on a BiPAP machine. PAST HISTORY: Presumed CKD 3, type 2 diabetes, history of obesity, and hypertension. ALLERGIES: NONE KNOWN. MEDICATIONS: He had been on vancomycin and hydrochlorothiazide, which has been stopped. Zithromax and ceftriaxone have been stopped. He did have p.r.n. order for Toradol, which he may have gotten about 3 days ago as well as ibuprofen earlier on during admission. Vancomycin levels have not been elevated. Currently on ipratropium, albuterol, Solu-Medrol, ampicillin, acyclovir, ceftriaxone, vancomycin 1 g q. 24h., and Glimepiride 4 mg a day. He had been on metformin, quinapril, and valsartan also, which are being held. Lasix was being given p.o. He had been on IV fluids normal saline 50 mL an hour. SOCIAL HISTORY: He does not abuse alcohol or smoke at this time. FAMILY HISTORY: Unknown of any kidney problems. REVIEW OF SYSTEMS: He is drowsy, unable to obtain. PHYSICAL EXAMINATION GENERAL: Lying in IMCU bed. VITALS: Temperature 100, pulse 100, sounds regular, and blood pressure 99/52. HEENT: BiPAP mask in place. NECK: Thick. CHEST: Scattered rhonchi. CARDIAC: Normal heart tones. Tachycardia is present. EXTREMITIES: Trace edema. ABDOMEN: Appears benign. NEURO: Appears to be sedated. LABS: K is 5.7, serum CO2 of 19, creatinine 3.5, BUN 74, glucose 298, calcium 7.1, and albumin 2.1. PH is 7.2, pCO2 of 66, and pO2 of 90. Hemoglobin 11.3, white count 12.75, and platelets are 42,000. UA was showing specific gravity of 1.025, no cast reported, some proteins reported. Vancomycin level last checked yesterday was 17. ASSESSMENT: Acute kidney injury, presumed tubular necrosis. There may be a prerenal component from the diffuse perfusion, metabolic acidosis, hyperkalemia, and fluid overload. PLAN: Change to IV Lasix. We will give him low-dose bicarbonate drip, 2 amps of D50, and 10 units of regular insulin. At this point, I do not think he can swallow Kayexalate. He does need IV access. We will request a dialysis catheter with extra pigtail instead of usual central line as he may require dialytic support. Discussed with the for the time being we will also recheck the potassium in the evening. We will follow along with you. Appears to be very sick, complex decision making. Job#: [id number] VAS
[2017-08-17 16:42] LABS: ABG HCO3 18 mmol/L (23-28); ABG PCO2 48 mmHg (41-51); ABG PH 7.18 (7.31-7.41); ABG PO2 108 mmHg (80-105)
[2017-08-17] MEDS ORDERED: SODIUM BICARBONATE 650 MG TAB PO SCH (17:00)
--- NOTE | 2017-08-17 17:03 | Diagnostic Imaging Report ---
EXAMINATION: CHEST XRAY LINE PLACEMENT INDICATION: \S\CVC PLACEMENT \S\[id number] \S\1545 \S\Y COMPARISON: 08/17/2017 5:44 AM FINDINGS: AP view TUBES and LINES: ET tube tip projects approximately 6.5 cm above the dean. Right internal jugular central venous catheter tip is faintly visualized and overlies the right atrium. Right pleural catheter overlies the right chest. LUNGS: Worsening pulmonary edema. PLEURA: Stable small right pleural effusion. No pneumothorax. HEART AND MEDIASTINUM: Stable enlargement. BONES AND SOFT TISSUES: Unchanged. UPPER ABDOMEN: No free air under the diaphragm. IMPRESSION: 1. Lines and tubes as above. 2. Worsening pulmonary edema. 3. Stable small right pleural effusion. Signed by: DR. Javier Boyce MD on 08/17/2017 4:59 PM
--- NOTE | 2017-08-17 17:51 | Progress Note ---
DATE: August 17, 2017 PULMONARY MEDICINE PROGRESS NOTE SUBJECTIVE: Mr. Pollock was seen and examined at bedside. He continues to deteriorate throughout the night. Urine output continued to fall. In the morning, creatinine was going up further, and potassium went up to critical levels. He persists with obtundation despite the poor blood gases. Decision was made to intubate the patient. This was done after careful preparation. This was done with difficulty due to poor grade airway. The patient did have 2 bowel movements recorded yesterday. Chest tube was placed with 425 mL of output. REVIEW OF SYSTEMS: Cannot get as he is altered and later intubated. OBJECTIVE GENERAL: The patient is noted to be very unstable. Multiorgan failure and pale. NEUROLOGIC: He is obtunded. LUNGS: Limited air entry. ABDOMEN: Soft and nontender. EXTREMITIES: No new rash. Has 2+ edema still. LABS: Potassium 5.7, bicarbonate 19, BUN 74, creatinine 3.5. White count 13, hematocrit 36, and platelets 24,000. IMPRESSION AND PLAN 1. Acute respiratory failure, failed BiPAP, now intubated. 2. Acute kidney injury, oliguric. 3. Encephalopathy, multifactorial. 4. Hypercapnic respiratory acidosis and now metabolic acidosis combined. 5. Evolving parapneumonic effusion, status post chest tube. 6. Pneumonia, severe, likely atypical. 7. Splenectomy. Please see orders. Clear airway and continue to treat the kidneys aggressively. High dose antibiotics will be continued. The patient needs transfer to the ICU. Greater than 30 minutes in direct care today, not including procedures. Multiple coordination and discussion with family. Job#: [id number] EFRA
--- NOTE | 2017-08-17 18:14 | Operative Report ---
DATE OF PROCEDURE: August 17, 2017 PROCEDURE: Endotracheal intubation. INDICATIONS: Acute respiratory failure. CONSENT: Emergent although the gave consent. FINDINGS: After discussion of the dire scenario, it was elected to intubate the patient. The patient was prepared meticulously given his dire situation and 80% baseline FIO2 on BiPAP prior to the procedure. Direct laryngoscopy was performed. The epiglottis was noted to be distal to the Mac 4 blade, and the view was delegated to grade 3-4. This was done after giving 20 mg of etomidate. A 2nd look was performed using 15 mg of vecuronium. Once again, the view remains quite poor. At this time, we switched over to video laryngoscope. With mild difficulty as we had to wiggle through the vocal cords, which seemed quite distal and with poor view, we were able to get the endotracheal tube in place. CO2 confirmation was performed successfully. The 8 endotracheal tube was secured at 25 cm at the lip. At this point, the procedure was terminated. The patient was put on the ventilator. COMPLICATIONS: None. ESTIMATED BLOOD LOSS: None. IMPRESSION: Successful endotracheal intubation. Grade 3 airway. Job#: [id number] [place]
[2017-08-17] MEDS ORDERED: DEXMEDETOMIDINE HCL 200 MCG in SODIUM CHLORIDE 0.9% 50ML 48 ML IV PRN (18:15)
[2017-08-17] MEDS: FUROSEMIDE INJ 10 MG/ML 4 ML VIAL IV SCH (18:34)
[2017-08-17] MEDS: SODIUM CHLORIDE 0.9% 1000ML 1,000 ML IV SCH (18:34)
[2017-08-18] VITALS (93 sets, daily range): BP systolic 93–157; BP diastolic 54–133
[2017-08-18] MEDS: INSULIN LISPRO 100 UNIT/1 ML 3ML VIAL SQ SCH ×3 (00:10→12:30)
[2017-08-18] MEDS: IPRATROPIUM BROMIDE 0.02% 2.5 ML NEB NEB SCH ×6 (02:50→22:25)
[2017-08-18] MEDS: ALBUTEROL SULF 0.083% NEB SOLN 3 ML NEB NEB SCH ×5 (02:50→22:25)
[2017-08-18] MEDS ORDERED: SODIUM CHLORIDE 0.9% 100 ML ONE (04:09)
[2017-08-18] MEDS: CEFTRIAXONE SOD 1 GM VIAL IV SCH ×2 (04:13→16:30)
[2017-08-18 05:59] LABS: BASOPHILS % 0.2 % (0.0-1.0); HEMATOCRIT 34.9 % (38.2-49.6); HEMOGLOBIN 11.5 g/dL (14.0-18.0); LYMPHOCYTES # (AUTO) 0.8 (1.0-3.2); LYMPHOCYTES % 9.5 % (18.0-39.1); MEAN CORPUSCULAR HEMOGLOBIN 30.2 pg (28-32); MEAN CORPUSCULAR VOLUME 91.6 fL (81-99); MONOCYTES % 11.1 % (4.4-11.3); NEUTROPHILS # (AUTO) 6.6 (2.1-6.9); NEUTROPHILS % 76.5 % (38.7-80.0); RED BLOOD COUNT 3.81 x10e6/uL (4.3-5.7); RED CELL DISTRIBUTION WIDTH 17.3 % (11.7-14.4)
[2017-08-18 06:03] LABS: PLATELET COUNT 47 x10e3/uL (140-360)
--- NOTE | 2017-08-18 06:20 | Diagnostic Imaging Report ---
EXAM: CHEST SINGLE (PORTABLE), AP 1 view INDICATION: Congestive heart failure COMPARISON: AP view of the chest August 17, 2017 FINDINGS: LINES/TUBES: Stable endotracheal tube, nasogastric tube tube and right internal jugular vein central line LUNGS: Edema and bibasilar atelectasis PLEURA: Small right pleural effusion HEART AND MEDIASTINUM: Stable appearance BONES AND SOFT TISSUES: No acute findings. IMPRESSION: No interval change Signed by: Dr. Vanessa Curran M.D. on 08/18/2017 6:17 AM
[2017-08-18 06:26] LABS: INR 1.16; PROTHROMBIN TIME 13.9 seconds (11.9-14.5)
[2017-08-18 06:27] LABS: PARTIAL THROMBOPLASTIN TIME 33.1 seconds (23.8-35.5)
[2017-08-18] MEDS: SODIUM CHLORIDE 0.9% 1000ML 1,000 ML IV SCH ×2 (06:35→19:55)
[2017-08-18 06:45] LABS: ALBUMIN 2.1 g/dL (3.5-5.0); ALBUMIN/GLOBULIN RATIO 0.6 (0.8-2.0); ANION GAP 18.1 mmol/L (8-16); CREATININE, SERUM 3.89 mg/dL (0.72-1.25); MAGNESIUM 1.9 MG/DL (1.3-2.1); POTASSIUM 4.1 mmol/L (3.5-5.1)
[2017-08-18] MEDS: FUROSEMIDE 40 MG TAB PO SCH (09:00)
[2017-08-18] MEDS: ACYCLOVIR SODIUM 750 MG in SODIUM CHLORIDE 0.9% 250ML 250 ML IV SCH (09:00)
[2017-08-18] MEDS: FUROSEMIDE INJ 10 MG/ML 4 ML VIAL IV SCH ×3 (09:12→22:17)
[2017-08-18] MEDS: GLIMEPIRIDE 2 MG TAB PO SCH ×2 (09:12→17:00)
[2017-08-18] MEDS: AMPICILLIN SOD 2 GM/NS 100ML 100 ML IV SCH (09:12)
[2017-08-18] MEDS: METHYLPREDNISOLONE SOD SUCC 40 MG/ML VIAL IV SCH ×2 (09:15→22:17)
[2017-08-18] MEDS: METOPROLOL SUCCINATE 50 MG TAB XL PO SCH (09:20)
[2017-08-18] MEDS ORDERED: FUROSEMIDE INJ 10 MG/ML 4 ML VIAL ONE (11:01)
[2017-08-18 11:26] LABS: BAND NEUTROPHILS % (MANUAL) 16 %; LYMPHOCYTES % (MANUAL) 14 % (19-48); MONOCYTES % (MANUAL) 8 % (3.4-9.0); NEUTROPHILS % (MANUAL) 62 % (40-74); PLATELET MORPHOLOGY COMMENT NORMAL; RBC MORPHOLOGY COMMENT NORMAL
[2017-08-18 11:27] LABS: PLATELET ESTIMATE MARKEDLY DECREASED
--- NOTE | 2017-08-18 13:16 | Progress Note ---
DATE: Mr. Pollock is much better today. He is alert and oriented. He is communicative. His vital signs are stable and afebrile. He is in ICU and intubated, but communicative. PHYSICAL EXAMINATION GENERAL: Alert and follows commands. VITALS: Stable and afebrile. HEENT: Anicteric. NECK: Supple. CHEST: Clear. CORE: S1 and S2. No murmur. ABDOMEN: Soft. Bowel sounds present. EXTREMITIES: No edema. NEURO: The patient has altered mental status. Concern about major encephalitis. IMPRESSION 1. Sepsis on admission: The patient had splenectomy. 2. Acute kidney injury with chronic kidney disease. 3. Idiopathic thrombocytopenic purpura. 4. Chronic kidney disease. PLAN 1. Proceed with LP after platelets. Discussed with neurology. Will continue on ampicillin, vancomycin, acyclovir, and Rocephin until we get the spinal tap. 2. Possibility of pneumonia. 3. Thrombocytopenia in the setting of sepsis and idiopathic thrombocytopenic purpura. 4. Discussed with the at length. Job#: [id number] EFRA
[2017-08-18] MEDS ORDERED: PROPOFOL IV EMULSION 10MG/ML 100 ML ONE (14:21)
[2017-08-18] MEDS: PROPOFOL IV EMULSION 10MG/ML 100 ML IV PRN ×3 (14:42→22:35)
[2017-08-18] MEDS: ALBUTEROL/IPRATROPIUM 3 ML NEB NEB PRN (15:38)
[2017-08-18] MEDS ORDERED: VANCOMYCIN 1GM/NS 250 ML 250 ML IV SCH (16:15)
--- NOTE | 2017-08-18 19:42 | Diagnostic Imaging Report ---
EXAM: Renal Ultrasound INDICATION: ARF COMPARISON: None TECHNIQUE: Transverse and longitudinal sonographic images of the kidneys and bladder were obtained. FINDINGS: RIGHT KIDNEY: Unable to evaluate secondary to chest tube and bandages in the right upper quadrant of the abdomen. Patient unable to turn due to sedation and restrained LEFT KIDNEY: 13.3 x 6.1 x 6 cm, normal cortical thickness. Echogenicity: Normal Hydronephrosis: None Calculi: None Cyst/Mass: None BLADDER: Decompressed by Ruggiero catheter. IMPRESSION: Limited exam due to patient's condition and body habitus. Sonographic appearance of the left kidney within normal limits. Right kidney and bladder not evaluated. Signed by: Dr. Vanessa Curran M.D. on 08/18/2017 7:38 PM
[2017-08-18 20:05] LABS: BODY FLUID APPEARANCE CLOUDY; BODY FLUID COLOR RED; BODY FLUID TYPE PLEURAL
[2017-08-18 20:08] LABS: RBC,BODY FLUID 57750 cells/uL; WBC,BODY FLUID 23 cells/uL
[2017-08-18] MEDS ORDERED: SODIUM BICARBONATE 8.4% SYRING 50 ML ONE (21:11)
[2017-08-18 21:15] LABS: LYMPHOCYTES,BODY FLUID 80 %; MONO/MACROPHG,BODY FLUID 9 %; NEUTROPHILS,BODY FLUID 2 %; OTHER CELLS,BODY FLUID 9 %
[2017-08-18] MEDS ORDERED: SODIUM BICARBONATE 8.4% SYRING 100 ML ONE (21:24)
[2017-08-18] MEDS ORDERED: DEXTROSE 5% 1,000 ML IV ONE (21:25)
[2017-08-18] MEDS: SODIUM BICARBONATE 8.4% 150 ML in STERILE WATER IV SOLN 1,000 ML IV SCH (21:45)
[2017-08-19] VITALS (63 sets, daily range): BP systolic 100–194; BP diastolic 54–105
[2017-08-19] MEDS: INSULIN LISPRO 100 UNIT/1 ML 3ML VIAL SQ SCH
[2017-08-19] MEDS: PROPOFOL IV EMULSION 10MG/ML 100 ML IV PRN ×3 (01:52→05:00)
[2017-08-19] MEDS ORDERED: DEXTROSE 50% SYRINGE 50 ML IV PRN (02:15)
[2017-08-19] MEDS: IPRATROPIUM BROMIDE 0.02% 2.5 ML NEB NEB SCH ×6 (02:20→23:15)
[2017-08-19] MEDS: ALBUTEROL SULF 0.083% NEB SOLN 3 ML NEB NEB SCH ×6 (02:20→23:15)
[2017-08-19] MEDS: CEFTRIAXONE SOD 1 GM VIAL IV SCH ×2 (04:15→16:15)
--- NOTE | 2017-08-19 06:12 | Diagnostic Imaging Report ---
EXAM: CHEST SINGLE (PORTABLE), AP 1 view INDICATION: Intubated COMPARISON: AP view of the chest August 18, 2017 FINDINGS: LINES/TUBES: The endotracheal tube terminates 4 cm above the dean. Nasogastric tube terminates in the fundus of the stomach. LUNGS: Edema and bibasilar atelectasis. PLEURA: Small right pleural effusion. Possible effusion on the left. HEART AND MEDIASTINUM: Stable enlargement BONES AND SOFT TISSUES: No acute findings. IMPRESSION: No interval change Signed by: Dr. Vanessa Curran M.D. on 08/19/2017 6:09 AM
[2017-08-19 06:46] LABS: BASOPHILS % 0.1 % (0.0-1.0); HEMATOCRIT 33.1 % (38.2-49.6); HEMOGLOBIN 11.4 g/dL (14.0-18.0); LYMPHOCYTES # (AUTO) 0.5 (1.0-3.2); LYMPHOCYTES % 5.4 % (18.0-39.1); MEAN CORPUSCULAR HEMOGLOBIN 30.5 pg (28-32); MEAN CORPUSCULAR HGB CONC 34.4 g/dL (31-35); MEAN CORPUSCULAR VOLUME 88.5 fL (81-99); MONOCYTES # (AUTO) 0.9 (0.2-0.8); MONOCYTES % 9.4 % (4.4-11.3); NEUTROPHILS % 83.2 % (38.7-80.0); RED BLOOD COUNT 3.74 x10e6/uL (4.3-5.7); RED CELL DISTRIBUTION WIDTH 16.7 % (11.7-14.4)
[2017-08-19 06:51] LABS: PLATELET COUNT 49 x10e3/uL (140-360)
[2017-08-19 07:06] LABS: ANION GAP 18.8 mmol/L (8-16); CALCIUM 7.3 mg/dL (8.4-10.2); CREATININE, SERUM 2.73 mg/dL (0.72-1.25); POTASSIUM 3.8 mmol/L (3.5-5.1)
[2017-08-19 07:13] LABS: INR 1.14; PROTHROMBIN TIME 13.7 seconds (11.9-14.5)
[2017-08-19 07:31] LABS: MAGNESIUM 1.9 MG/DL (1.3-2.1); PHOSPHORUS 2.3 MG/DL (2.3-4.7)
[2017-08-19 07:53] LABS: LYMPHOCYTES % (MANUAL) 14 % (19-48); METAMYELOCYTES % (MANUAL) 1 % (0-0); MONOCYTES % (MANUAL) 5 % (3.4-9.0); NEUTROPHILS % (MANUAL) 80 % (40-74)
[2017-08-19 07:54] LABS: ANISOCYTOSIS SLIGHT; HYPOCHROMASIA SLIGHT; POIKILOCYTOSIS SLIGHT
[2017-08-19 07:56] LABS: BURR CELLS SLIGHT; PLATELET ESTIMATE MARKEDLY DECREASED; PLATELET MORPHOLOGY COMMENT NORMAL; RBC MORPHOLOGY COMMENT ABNORMAL
[2017-08-19] MEDS: AMPICILLIN SOD 2 GM/NS 100ML 100 ML IV SCH (10:00)
[2017-08-19] MEDS: METHYLPREDNISOLONE SOD SUCC 40 MG/ML VIAL IV SCH ×2 (10:31→21:20)
[2017-08-19] MEDS: ACYCLOVIR SODIUM 750 MG in SODIUM CHLORIDE 0.9% 250ML 250 ML IV SCH (10:31)
[2017-08-19] MEDS: FUROSEMIDE INJ 10 MG/ML 4 ML VIAL IV SCH ×2 (10:45→21:03)
[2017-08-19] MEDS: SODIUM CHLORIDE 0.9% 1000ML 1,000 ML IV SCH (10:45)
[2017-08-19] MEDS: METOPROLOL TARTRATE 50 MG TAB PO SCH ×2 (10:47→21:22)
[2017-08-19] MEDS: INSULIN REGULAR, HUMAN 100 UNIT/1 ML 3ML VIAL SQ SCH ×2 (12:36→17:17)
--- NOTE | 2017-08-19 13:14 | Progress Note ---
DATE: August 19, 2017 PULMONARY MEDICINE PROGRESS NOTE SUBJECTIVE: Mr. Pollock was seen and examined at bedside. He remains on IV fluids with normal saline at 75 mL per hour. He is also on D5 plus 3 amps of bicarbonate at 50 mL per hour. Urine output is excellent. He is on diuretics now. Chest x-ray: Bilateral pneumonitis, stable. He remains on ventilator. However, we gave him a weaning trial. Given his difficult airway at baseline, I directly supervised and was present during the weaning trial. It was seen that his blood gas analysis and weaning parameters sufficed. We gave him a chance at extubation, and he was seen to be calm. REVIEW OF SYSTEMS: Cannot get as he is on life support. OBJECTIVE VITAL SIGNS: Afebrile, vital signs noted per electronic record. GENERAL: In no acute distress, alert and calm. HEENT: Normocephalic, atraumatic. NECK: Supple. Throat midline. LUNGS: Bilateral air entry, a few rhonchi. CARDIOVASCULAR: S1, S2. No murmurs, rubs or gallops. ABDOMEN: Soft, nontender. EXTREMITIES: No clubbing, no cyanosis. There is stable 1 to 2+ edema. INTEGUMENT: No rash. No purpura. LABS: Bicarbonate 26, 96 BUN, 2.7 creatinine, 2.8 potassium, 9.7 white count, 33 hematocrit, 49 platelets. IMPRESSION AND PLAN 1. Encephalopathy, resolved. 2. Acute respiratory failure, improving. Extubated today. 3. Shock, resolved. 4. Acute kidney injury. 5. Severe pneumonia, likely atypical. 6. Evolving pleural effusion, not otherwise specified. Unexpectedly, it is 86% lymphocytes due to exudate, which is not what we expected. Rule out air and rule out atypical pneumonia as etiology. 7. Hypertension. 8. Diabetes. 9. Postsplenectomy state. 10. History of idiopathic thrombocytopenic purpura, primary hyperparathyroidism, obesity, diabetes. At this time, will continue close followup. We extubated the patient today. Start diet if tolerated. Continue to treat her kidneys aggressively and continue diuretics. Will discuss with pathology given the atypical pleural effusion findings. Will have them review for validity. CAT scan of the chest needs to be repeated in a few days to assess if we got all the fluid. Consider LP but the patient is much better and likely will need long-term antibiotics for a few weeks as we will treat blindly. The risk of bleeding was very high, and now we have a risk of respiratory insufficiency given his borderline respiratory status. Greater than 30 minutes of direct care today. Multiple evaluations and interventions. Job#: [id number]
[2017-08-19 17:24] LABS: ABG HCO3 28 mmol/L (23-28); ABG PCO2 43 mmHg (41-51); ABG PH 7.43 (7.31-7.41); ABG PO2 67 mmHg (80-105)
--- NOTE | 2017-08-19 19:08 | Progress Note ---
DATE: August 18, 2017 PULMONARY MEDICINE PROGRESS NOTE SUBJECTIVE: Mr. Pollock was seen and examined at bedside. He at this time has more stable vital signs. Blood pressure is actually increased now. Yesterday's I's and O's, 2.9 L in, 1.4 L out. Today's I's and O's 1.3 L in, 4.2 L out. His kidney function is dramatically improving. Patient is on bicarbonate drip still at this time. He is on propofol for sedation, but he is wide awake, more than previous. Chest tube is in place with about 150 mL over 12 hours of output. OG tube with very low output. REVIEW OF SYSTEMS: Cannot give as he is intubated. OBJECTIVE: VITAL SIGNS: Afebrile, vital signs noted per electronic record. GENERAL: In no acute distress, alert and calm on ventilator. HEENT: Normocephalic, atraumatic. NECK: Supple. Throat midline. LUNGS: Bilateral air entry, decreased breath sounds. Rare rhonchi. CARDIOVASCULAR: S1, S2. No murmurs, rubs or gallops. ABDOMEN: Soft, nontender. EXTREMITIES: No clubbing, no cyanosis. There is still 2+ edema. INTEGUMENT: No rash or purpura. LABS: 9 white counts, 35 hematocrit, 47,000 platelets. INR 1.16. Chemistry includes glucose 300, as often, uncontrolled. Potassium 4.1, bicarbonate 201, BUN 93, creatinine 3.9. Albumin is 2.1. Total fluid analysis with red blood cells 57,000, lymphocytes 80% was recorded, total protein was 2.5, fluid LDH was 384, amylase normal, glucose 328. Chest x-ray: Stable findings, right-sided effusion, bilateral infiltrates. IMPRESSION AND PLAN 1. Severe pneumonia. 2. Post splenectomy state. 3. Abnormal pleural effusion. 4. As of yet, indeterminate results. 5. Encephalopathy, much better. Rule out central nervous system infection. 6. Acute kidney injury, hopefully starting to improve. Will increase glucose control. Of note, he is on steroids for others. No pulmonary indication for steroids typically. Continue ventilator support. Patient with a difficult airway, so will consider starting to wean him starting tomorrow, but in the presence of advance support for difficult airway. Check serum LDH to reassess the pleural effusions. If it is lymphocytic in nature, needs to be addressed further. Continue renal replacement therapy. Will follow along closely. Job#: [id number] GE
[2017-08-19] MEDS ORDERED: INSULIN DETEMIR 100 UNIT/ML PEN SQ SCH (21:00)
--- NOTE | 2017-08-19 21:50 | Diagnostic Imaging Report ---
CHEST SINGLE (PORTABLE), 08/19/2017 9:01 PM Technique: CHEST SINGLE (PORTABLE) Comparison: 08.19.17 Clinical history: \S\right chest tube pain at site \S\[id number] \S\2102 \S\Y Findings: Limited portable view with soft tissue attenuation and motion. Left costophrenic angle excluded. Impression: 1. Lines/Tubes: Removal of the ET tube, NG tube. Right central venous catheter and chest tube again noted. 2. Stable enlarged cardiomediastinal silhouette. 3. Persistent bilateral opacities, favor edema and layering pleural fluid. No definite pneumothorax. Signed by: Dr Fior Smith MD on 08/19/2017 9:46 PM
[2017-08-20] VITALS (46 sets, daily range): BP systolic 99–187; BP diastolic 41–104
[2017-08-20] MEDS: ALBUTEROL SULF 0.083% NEB SOLN 3 ML NEB NEB SCH ×6 (03:10→23:10)
[2017-08-20] MEDS: IPRATROPIUM BROMIDE 0.02% 2.5 ML NEB NEB SCH ×6 (03:10→23:10)
[2017-08-20] MEDS: CEFTRIAXONE SOD 1 GM VIAL IV SCH ×2 (04:15→16:15)
[2017-08-20 05:11] LABS: BASOPHILS % 0.1 % (0.0-1.0); HEMATOCRIT 36.3 % (38.2-49.6); HEMOGLOBIN 12.3 g/dL (14.0-18.0); LYMPHOCYTES # (AUTO) 0.6 (1.0-3.2); LYMPHOCYTES % 6.8 % (18.0-39.1); MEAN CORPUSCULAR HEMOGLOBIN 29.9 pg (28-32); MEAN CORPUSCULAR HGB CONC 33.9 g/dL (31-35); MEAN CORPUSCULAR VOLUME 88.1 fL (81-99); NEUTROPHILS # (AUTO) 6.9 (2.1-6.9); NEUTROPHILS % 79.4 % (38.7-80.0); RED BLOOD COUNT 4.12 x10e6/uL (4.3-5.7)
[2017-08-20 05:17] LABS: PLATELET COUNT 38 x10e3/uL (140-360)
[2017-08-20 05:36] LABS: ALBUMIN 2.5 g/dL (3.5-5.0); ALBUMIN/GLOBULIN RATIO 0.7 (0.8-2.0); ANION GAP 15.5 mmol/L (8-16); CALCIUM 7.9 mg/dL (8.4-10.2); CREATININE, SERUM 2.07 mg/dL (0.72-1.25); MAGNESIUM 1.6 MG/DL (1.3-2.1); POTASSIUM 3.5 mmol/L (3.5-5.1)
[2017-08-20 05:53] LABS: ANISOCYTOSIS SLIGHT; LYMPHOCYTES % (MANUAL) 8 % (19-48); MONOCYTES % (MANUAL) 7 % (3.4-9.0); NEUTROPHILS % (MANUAL) 85 % (40-74); NUCLEATED RED BLOOD CELLS 1; PLATELET ESTIMATE MARKEDLY DECREASED; PLATELET MORPHOLOGY COMMENT NORMAL; RBC MORPHOLOGY COMMENT NORMAL
[2017-08-20] MEDS: INSULIN REGULAR, HUMAN 100 UNIT/1 ML 3ML VIAL SQ SCH ×4 (06:00→21:55)
[2017-08-20] MEDS: AMPICILLIN SOD 2 GM/NS 100ML 100 ML IV SCH (08:52)
[2017-08-20] MEDS: METOPROLOL TARTRATE 50 MG TAB PO SCH ×2 (08:53→21:56)
[2017-08-20] MEDS: FUROSEMIDE INJ 10 MG/ML 4 ML VIAL IV SCH ×2 (08:53→21:00)
[2017-08-20] MEDS: METHYLPREDNISOLONE SOD SUCC 40 MG/ML VIAL IV SCH (08:53)
[2017-08-20] MEDS: ACETAMINOPHEN 325 MG TAB PO PRN (09:35)
[2017-08-20] MEDS: ACYCLOVIR SODIUM 750 MG in SODIUM CHLORIDE 0.9% 250ML 250 ML IV SCH (10:00)
[2017-08-20] MEDS ORDERED: POTASSIUM CHLORIDE 20 MEQ in DEXTROSE 5% 1,000 ML IV ONE (11:30)
[2017-08-20] MEDS: ACETAMINOPHEN/CODEINE 300MG - 30MG TAB PO PRN (12:08)
[2017-08-20] MEDS ORDERED: INSULIN DETEMIR 100 UNIT/ML PEN SQ ONE (13:30)
[2017-08-20] MEDS: INSULIN DETEMIR 100 UNIT/ML PEN SQ SCH (21:55)
--- NOTE | 2017-08-20 23:05 | Progress Note ---
DATE: August 20, 2017 PULMONARY MEDICINE PROGRESS NOTE SUBJECTIVE: Mr. Pollock was seen and examined at bedside. He is spontaneously breathing. Awake and in no respiratory distress. No confusion. However, patient still has significant weakness. He was able to stand up, but he shuffles his feet and could not really bear too much activity. He is getting 1 liter of D5W IV fluids. Glucose often 300s and 400s noted. Steroids were stopped later. Ruggiero with good urine output. REVIEW OF SYSTEMS: No bleeding, no rash. OBJECTIVE: VITAL SIGNS: Afebrile, vital signs noted per electronic record. GENERAL: In no acute distress, alert and calm. HEENT: Normocephalic, atraumatic. NECK: Supple. Throat midline. LUNGS: Bilateral air entry, few rhonchi. CARDIOVASCULAR: S1 and S2. No murmurs, rubs, or gallops. ABDOMEN: Soft, nontender. EXTREMITIES: No clubbing, no cyanosis, there is still the 2+ edema. INTEGUMENT: No rash, no purpura. LABS: 87 BUN, 2.07 creatinine. 8.7 white count, 38,000 platelets. IMPRESSION AND PLAN: 1. Severe pneumonia, likely typical. 2. Acute respiratory failure, intubated and extubated. 3. Shock, septic. Resolved. 4. Acute kidney failure, improving creatinine. 5. Hyperglycemia, severe. 6. Diabetes. 7. Critical thrombocytopenia. 8. Complicated pleural effusion, status post chest tube placement. 9. Post splenectomy state. 10. History of idiopathic thrombocytopenic purpura. 11. Obesity. Offered patient sleep apnea therapy with positive airway pressure if he has sleep apnea. Nursing to help monitor as well as respiratory. Augment the insulin to be given at this time. Continue aggressive physical therapy and occupational therapy. Continue antibiotics for minimum 3 weeks. No lumbar puncture will be done as it is not safe with his low platelets. Will follow along closely. Follow up while he is getting fluids and follow up his creatinine as it improves further. Avoid nephrotoxic agents. Job#: [id number]
[2017-08-21] VITALS (19 sets, daily range): BP systolic 109–176; BP diastolic 48–97
[2017-08-21] MEDS: IPRATROPIUM BROMIDE 0.02% 2.5 ML NEB NEB SCH ×6 (03:01→22:37)
[2017-08-21] MEDS: ALBUTEROL SULF 0.083% NEB SOLN 3 ML NEB NEB SCH ×6 (03:01→22:37)
[2017-08-21] MEDS: CEFTRIAXONE SOD 1 GM VIAL IV SCH ×2 (05:12→16:15)
[2017-08-21] MEDS: INSULIN REGULAR, HUMAN 100 UNIT/1 ML 3ML VIAL SQ SCH ×4 (05:15→20:47)
[2017-08-21 05:23] LABS: BASOPHILS % 0.4 % (0.0-1.0); HEMATOCRIT 36.6 % (38.2-49.6); LYMPHOCYTES # (AUTO) 1.5 (1.0-3.2); LYMPHOCYTES % 18.2 % (18.0-39.1); MEAN CORPUSCULAR HEMOGLOBIN 30.1 pg (28-32); MEAN CORPUSCULAR HGB CONC 32.8 g/dL (31-35); MEAN CORPUSCULAR VOLUME 91.7 fL (81-99); MONOCYTES # (AUTO) 1.6 (0.2-0.8); NEUTROPHILS # (AUTO) 4.7 (2.1-6.9); NEUTROPHILS % 57.4 % (38.7-80.0); RED BLOOD COUNT 3.99 x10e6/uL (4.3-5.7); RED CELL DISTRIBUTION WIDTH 15.9 % (11.7-14.4)
[2017-08-21 05:41] LABS: CALCIUM 8.3 mg/dL (8.4-10.2); CREATININE, SERUM 1.46 mg/dL (0.72-1.25)
--- NOTE | 2017-08-21 05:46 | Diagnostic Imaging Report ---
CHEST SINGLE (PORTABLE), 08/21/2017 5:00 AM Technique: CHEST SINGLE (PORTABLE) Comparison: 08/19/2017 Clinical history: Chest tube Findings: Limited portable view with soft tissue attenuation and motion. Impression: 1. Lines/Tubes: Right central venous catheters and chest tube again noted. 2. Stable cardiomediastinal silhouette. 3. Persistent bilateral opacities with right pleural fluid. No definite pneumothorax seen. Signed by: Dr Fior Smith MD on 08/21/2017 5:43 AM
[2017-08-21 06:09] LABS: PLATELET COUNT 32 x10e3/uL (140-360)
[2017-08-21 07:37] LABS: BAND NEUTROPHILS % (MANUAL) 1 %; LYMPHOCYTES % (MANUAL) 24 % (19-48); METAMYELOCYTES % (MANUAL) 2 % (0-0); MONOCYTES % (MANUAL) 18 % (3.4-9.0); MYELOCYTES % (MANUAL) 3 % (0-0); NEUTROPHILS % (MANUAL) 52 % (40-74); NUCLEATED RED BLOOD CELLS 3
[2017-08-21 07:39] LABS: TARGET CELLS FEW
[2017-08-21 07:40] LABS: ANISOCYTOSIS SLIGHT; HYPOCHROMASIA SLIGHT; PLATELET ESTIMATE MARKEDLY DECREASED; PLATELET MORPHOLOGY COMMENT NORMAL; RBC MORPHOLOGY COMMENT NORMAL
[2017-08-21] MEDS ORDERED: POTASSIUM CHLORIDE 20 MEQ TAB CR PO STA (08:43)
[2017-08-21] MEDS: FUROSEMIDE INJ 10 MG/ML 4 ML VIAL IV SCH ×2 (09:24→20:46)
--- NOTE | 2017-08-21 09:26 | Diagnostic Imaging Report ---
PROCEDURE:ULTRASOUND GUIDANCE FOR PROCEDURE COMPARISON:None. INDICATIONS:RT CHEST TUBE PLACEMENT FINDINGS: See below. CONCLUSION:Please see the dictation of the chest tube placement for full clinical details. Dictated by: Cornell Willis M.D. on 08/21/2017 at 9:28 Electronically approved by: Cornell Willis M.D. on 08/21/2017 at 9:28
--- NOTE | 2017-08-21 09:27 | Diagnostic Imaging Report ---
PROCEDURE:ULTRASOUND GUIDANCE FOR VASCULAR ACCESS COMPARISON:None. INDICATIONS:Not provided. FINDINGS:Right internal jugular vein is noted to be patent. Ultrasound guidance was utilized for access for central venous catheter placement. CONCLUSION:Patent right internal jugular vein. Successful ultrasound guidance for central venous catheter placement. Dictated by: Cornell Willis M.D. on 08/21/2017 at 9:28 Electronically approved by: Cornell Willis M.D. on 08/21/2017 at 9:28
--- NOTE | 2017-08-21 09:28 | Diagnostic Imaging Report ---
PROCEDURE:ULTRASOUND GUIDANCE FOR VASCULAR ACCESS COMPARISON:None. INDICATIONS:trialysis catheter p-lacement FINDINGS:Right internal jugular vein is noted to be patent. Ultrasound guidance was utilized for access for PICC line placement. CONCLUSION:Patent right internal jugular vein. Successful ultrasound guidance for central venous catheter placement. Dictated by: Cornell Willis M.D. on 08/21/2017 at 9:29 Electronically approved by: Cornell Willis M.D. on 08/21/2017 at 9:29
[2017-08-21] MEDS: AMPICILLIN SOD 2 GM/NS 100ML 100 ML IV SCH (10:21)
[2017-08-21] MEDS: INSULIN DETEMIR 100 UNIT/ML PEN SQ SCH ×2 (10:21→20:49)
[2017-08-21] MEDS: ACYCLOVIR SODIUM 750 MG in SODIUM CHLORIDE 0.9% 250ML 250 ML IV SCH (10:21)
--- NOTE | 2017-08-21 10:28 | Diagnostic Imaging Report ---
PROCEDURE:CHEST TUBE PLACEMENT COMPARISON:CT chest 08/16/2017. INDICATIONS:Right pleural effusion. DESCRIPTION OF PROCEDURE:Informed consent was obtained. The patient was placed supine on the fluoroscopy table. A surgery technician image was obtained of the chest which confirmed the right pleural effusion. Focused sonographic evaluation of the right chest demonstrated a right pleural effusion. A safe approach was determined. The patient was prepped and draped in the standard sterile fashion. 1% lidocaine was infused into the subcutaneous and deep tissues for local anesthesia. Utilizing direct sonographic guidance, an 18 gauge needle was advanced into the right pleural effusion from lateral intercostal approach along the right mid axillary line. Aspiration of fluid confirmed proper position within the right lateral pleural space. A 0.035 inch wire was advanced centrally. Fluoroscopic images confirmed proper position of the wire coiled within the right lung base. A 10 [place] all-purpose drainage catheter was advanced over the wire. The wire was removed. The catheter was coiled into proper position in the right lung base. Fluoroscopy confirmed proper position of the catheter within the right lung base. The catheter was attached to closed vacuum suction drainage. The catheter was secured to the skin with 3-0 Ethilon suture. A sterile dressing was applied. The patient tolerated the procedure well. There were no immediate complications. The patient was transferred to the post procedure area in stable unchanged condition for further monitoring. CONCLUSION: Successful placement of a right pleural drainage catheter utilizing ultrasound and fluoroscopic guidance. Dictated by: Cornell Willis M.D. on 08/21/2017 at 10:29 Electronically approved by: Cornell Willis M.D. on 08/21/2017 at 10:29
[2017-08-21] MEDS ORDERED: POTASSIUM CHLORIDE 20MEQ/100ML 200 ML IV ONE (10:30)
[2017-08-21] MEDS ORDERED: DEXTROSE 5% 1,000 ML IV ONE (10:30)
--- NOTE | 2017-08-21 10:34 | Diagnostic Imaging Report ---
PROCEDURE:NON-TUNNELLED CVC CATH PLACMNT COMPARISON:None. INDICATIONS: Renal failure COMPLICATIONS: None. MEDICATIONS: None. BLOOD LOSS: Less than 2 cc. PROCEDURE: The procedure was performed at the bedside in the intensive care unit. A focused sonographic evaluation of the right neck demonstrated patent compressible right internal jugular vein. The right neck was prepped and draped in usual sterile fashion. Lidocaine was infused into the subcutaneous tissues for local anesthesia. Utilizing direct sonographic guidance, a 21 gauge needle was advanced into the right internal jugular vein. A 0.018 inch wire was advanced centrally. An access sheath was placed over the wire to secure the vascular access. The wire was upsized to a 0.035 inch wire. Serial dilations were performed over the wire. A double lumen temporary central venous hemodialysis catheter was advanced over the wire. The wire was removed. The dual port demonstrated proper function with aspiration and flush of sterile saline. The catheter ports were flushed with sterile saline. The catheter was secured to the skin with 3-0 Ethilon suture. A sterile dressing was applied. The patient tolerated the procedure well. There were no immediate complications. The patient remained in the intensive care unit in stable condition. Portable chest radiograph was ordered to confirm proper position of the catheter. CONCLUSION: Successful placement of a right internal jugular temporary central venous hemodialysis catheter utilizing ultrasound guidance. Dictated by: Cornell Willis M.D. on 08/21/2017 at 10:35 Electronically approved by: Cornell Willis M.D. on 08/21/2017 at 10:35
--- NOTE | 2017-08-21 10:38 | Diagnostic Imaging Report ---
PROCEDURE:NON-TUNNELLED CVC CATH PLACMNT COMPARISON:None. INDICATIONS: Need for central venous access. COMPLICATIONS: None. MEDICATIONS: None. BLOOD LOSS: Less than 20 cc. PROCEDURE: The procedure was performed at the bedside in the intensive care unit. Focused sonographic evaluation demonstrated patent and compressible right internal jugular vein. The previously placed temporary dialysis catheter was noted. The right neck was prepped and draped in the usual sterile fashion. 1% lidocaine was infused into the subcutaneous tissues for local anesthesia. Utilizing direct sonographic guidance, a 21 gauge needle was advanced into the right internal jugular vein. A 0.018 inch wire was advanced centrally. An access sheath was placed over the wire to secure the vascular access. The wire was upsized to 0.035 inch wire. A single dilation was performed over the wire. A triple lumen temporary central venous catheter was advanced over the wire. The wire was removed. The catheter ports demonstrated proper function with aspiration and flush of sterile saline. The catheter lumens were flushed with sterile saline. The catheter was secured to the skin with 3-0 Ethilon suture. A sterile dressing was applied. No immediate complications. The patient remained in the intensive care unit in stable unchanged condition. A portable chest radiograph was ordered to confirm proper position of the catheter. CONCLUSION: Successful placement of a right internal jugular temporary triple-lumen central venous catheter for venous access utilizing ultrasound guidance. Dictated by: Cornell Willis M.D. on 08/21/2017 at 10:39 Electronically approved by: Cornell Willis M.D. on 08/21/2017 at 10:39
[2017-08-21] MEDS ORDERED: POTASSIUM CHLORIDE 20 MEQ TAB CR PO SCH ×2 (10:45→14:00)
[2017-08-21] MEDS: METOPROLOL TARTRATE 50 MG TAB PO SCH ×2 (11:15→21:41)
--- NOTE | 2017-08-21 13:59 | Progress Note ---
DATE: August 21, 2017 PULMONARY MEDICINE PROGRESS NOTE SUBJECTIVE: Mr. Pollock was seen and examined at bedside. He continues to have slow progress. He was able to take 2 to 4 steps walking. He is 2-person maximum assist, however. He is eating only a quarter of his meals as he has no appetite. Ruggiero is in place with excellent urine output. Chest tube was at 20 mL over the last 12 hours. He remains on IV fluids as a bolus right now. REVIEW OF SYSTEMS: No bleeding, no rash. OBJECTIVE VITAL SIGNS: Afebrile, vital signs noted per electronic record. GENERAL: No acute distress, alert and calm. Slightly better color today but still pale. HEENT: Normocephalic, atraumatic. NECK: Supple. Throat midline. LUNGS: Bilateral air entry, a few rhonchi. Mildly decreased breath sounds at the base. CARDIOVASCULAR: S1 and S2. No murmurs, rubs, or gallops. ABDOMEN: Soft, nontender. EXTREMITIES: No clubbing. No cyanosis. There is still the 1 to 2+ edema. INTEGUMENT: No rash, no purpura. LABS: BUN 66 and 1.5 creatinine. Potassium 3.0 and 39 bicarbonate. White count 8, 37 hematocrit, 32 platelets. IMPRESSION AND PLAN 1. Severe pneumonia. 2. Meningitis. 3. Postsplenectomy state. 4. Acute kidney injury. 5. Parapneumonic effusion more likely, status post chest tube placement, under investigation however. 6. Anorexia. 7. Severe weakness. 8. Hypokalemia. Patient to be watched on the potassium. He is to be given the other fluid bolus today, so we will look for a potassium flush. Continue to mobilize him. Wean down the oxygen as tolerated. Continue chest tube management for now. Patient is very weak. Follow up the platelets, which are at critical levels. Hopefully as the sepsis improves that will get better as well. Will follow along closely. Continue to control glycemic issues again as the sugars are better as they are only in the 200s today. Job#: [id number]
[2017-08-21] MEDS: VANCOMYCIN 1GM/NS 250 ML 250 ML IV SCH (16:07)
[2017-08-21] MEDS ORDERED: BISMUTH SUBSALICYLATE 262 MG/15 ML 8OZ BTL PO PRN (17:45)
[2017-08-22] VITALS (21 sets, daily range): BP systolic 100–139; BP diastolic 43–87
[2017-08-22] MEDS: ALBUTEROL SULF 0.083% NEB SOLN 3 ML NEB NEB SCH ×6 (03:06→22:40)
[2017-08-22] MEDS: IPRATROPIUM BROMIDE 0.02% 2.5 ML NEB NEB SCH ×7 (03:06→23:20)
[2017-08-22] MEDS: CEFTRIAXONE SOD 1 GM VIAL IV SCH ×2 (05:15→16:37)
[2017-08-22 06:12] LABS: BASOPHILS % 0.3 % (0.0-1.0); EOSINOPHILS % 0.3 % (0.0-6.0); HEMATOCRIT 38.5 % (38.2-49.6); HEMOGLOBIN 12.8 g/dL (14.0-18.0); LYMPHOCYTES # (AUTO) 3.2 (1.0-3.2); LYMPHOCYTES % 30.2 % (18.0-39.1); MEAN CORPUSCULAR HEMOGLOBIN 29.9 pg (28-32); MEAN CORPUSCULAR HGB CONC 33.2 g/dL (31-35); MONOCYTES # (AUTO) 1.4 (0.2-0.8); MONOCYTES % 13.1 % (4.4-11.3); NEUTROPHILS # (AUTO) 5.7 (2.1-6.9); NEUTROPHILS % 53.7 % (38.7-80.0); RED BLOOD COUNT 4.28 x10e6/uL (4.3-5.7); RED CELL DISTRIBUTION WIDTH 15.3 % (11.7-14.4)
[2017-08-22 06:22] LABS: PLATELET COUNT 22 x10e3/uL (140-360)
[2017-08-22 06:31] LABS: ANION GAP 13.7 mmol/L (8-16); BLOOD UREA NITROGEN 44 mg/dL (7-26); BUN/CREATININE RATIO 41 (6-25); CALCIUM 8.4 mg/dL (8.4-10.2); CARBON DIOXIDE 39 mmol/L (22-29); CHLORIDE 94 mmol/L (98-107); CREATININE, SERUM 1.07 mg/dL (0.72-1.25); EST GLOMERULAR FILTRATION RATE > 60 ML/MIN (60-); GLUCOSE 138 mg/dL (74-118); POTASSIUM 3.7 mmol/L (3.5-5.1); SODIUM 143 mmol/L (136-145)
[2017-08-22] MEDS: INSULIN REGULAR, HUMAN 100 UNIT/1 ML 3ML VIAL SQ SCH ×4 (08:14→21:30)
[2017-08-22] MEDS: ACYCLOVIR SODIUM 750 MG in SODIUM CHLORIDE 0.9% 250ML 250 ML IV SCH (09:02)
[2017-08-22] MEDS: AMPICILLIN SOD 2 GM/NS 100ML 100 ML IV SCH (09:02)
[2017-08-22] MEDS: INSULIN DETEMIR 100 UNIT/ML PEN SQ SCH ×2 (09:07→21:30)
[2017-08-22] MEDS: FUROSEMIDE INJ 10 MG/ML 4 ML VIAL IV SCH ×3 (09:07→21:30)
[2017-08-22] MEDS: METOPROLOL TARTRATE 50 MG TAB PO SCH ×2 (11:44→21:30)
--- NOTE | 2017-08-22 14:09 | Progress Note ---
DATE: August 22, 2017 PULMONARY MEDICINE PROGRESS NOTE SUBJECTIVE: Mr. Pollock was seen and examined at bedside. He continues to have steady progress. He is not using the BiPAP anymore. He remains off the ventilator. Patient with eating less, just 50% of his diet. He still needs 2-person max assist to get up out of bed, although he is moderate assist for bed mobility. In 2.7 liters, 5.2 liters out recorded. REVIEW OF SYSTEMS: No headaches, no bleeding. OBJECTIVE VITAL SIGNS: Afebrile. Vital signs noted per electronic record. GENERAL: No acute distress, alert and calm. HEENT: Normocephalic, atraumatic. NECK: Supple. Throat midline. LUNGS: Bilateral air entry, few rhonchi. CARDIOVASCULAR: S1, S2. No murmurs, rubs, or gallops. ABDOMEN: Soft, nontender, obese. EXTREMITIES: No clubbing, no cyanosis, there is still 2+ edema. INTEGUMENT: No rash, no purpura. LABS: Potassium 3.7, 1.1 creatinine. White count 11, platelets 22, hematocrit 39. IMPRESSION AND PLAN 1. Thrombocytopenia. 2. Fluid overload, mild. 3. Acute kidney injury. 4. Acute respiratory failure, resolved. 5. Severe pneumonia. 6. Lymphocytic pleural effusion under investigation. 7. History of immunosuppressed state, history of chemotherapy for lymphoproliferative disorder. Continue current treatment at this time. Patient remains with a chest tube in place and this will be continued. Chest CT to decide what to do with the pleural effusion. Either bronchoscopy versus video-assisted thoracic surgery may be warranted. Continue a high dose antibiotics for the infection. Followup closely. We will follow him closely. Watch electrolytes and platelets as he improves. Job#: [id number] VANI
--- NOTE | 2017-08-22 19:49 | Diagnostic Imaging Report ---
PROCEDURE: CT CHEST WITHOUT CONTRAST CT scan of the chest WITHOUT intravenous contrast, using standard protocol. TECHNIQUE: The chest was scanned utilizing a multidetector helical scanner from the apex to the level of the adrenal glands. No IV contrast was administered per physician's request. Coronal and sagittal multiplanar reformations were obtained. COMPARISON: [facility], CT, CT CHEST WO, 08/16/2017, 10:00. INDICATIONS: PNEUMONIA FINDINGS: Lines/tubes: Interval placement of right pleural drain catheter. Lungs and Airways: Improved aeration of the right lower lobe, with mild right lower lobe groundglass opacities, likely reflecting atelectatic changes. Persistent focal consolidation, with air bronchograms in the anterior right lower lobe (series 3, image [id number]). No interval change in mild compressive atelectasis of the left lower lobe. Rest of the lungs is grossly clear. Airways are clear, without bronchial lesions. Pleura: Interval resolution of previously visualized right pleural effusion after placement of drainage catheter. Trace left pleural effusion is unchanged. Heart and mediastinum: Left thyroid lobe is unremarkable. Right thyroid lobe is absent. Heart size is normal. Trace pericardial effusion. Atherosclerotic calcification of the coronary arteries and thoracic aorta. Lymph nodes: No mediastina, hilar, or axillary adenopathy. Stable calcified right hilar lymph node Abdomen: Limited views of the upper abdomen show no abnormality within the visualized liver, pancreas, or left kidney. The adrenal glands are normal. The spleen is not visualized. Bones: No aggressive lytic lesion. Degenerative disc changes in the thoracic spine. Soft tissues are unremarkable. IMPRESSION: 1. improved aeration of the right lower lobe after drainage of previously visualized right pleural effusion. Mild remaining atelectatic changes in the right lower lobe. 2. Persistent focal consolidation in the anterior right lower lobe, likely representing pneumonia, in the appropriate clinical setting. 3. Unchanged trace left pleural effusion and mild compressive atelectasis of the left lower lobe. Hank Gallo M.D. Dictated by: Hank Gallo M.D. on 08/22/2017 at 19:50 Electronically approved by: Hank Gallo M.D. on 08/22/2017 at 19:50
[2017-08-23] VITALS (22 sets, daily range): BP systolic 99–175; BP diastolic 58–108
[2017-08-23] MEDS: IPRATROPIUM BROMIDE 0.02% 2.5 ML NEB NEB SCH ×5 (02:34→19:00)
[2017-08-23] MEDS: ALBUTEROL SULF 0.083% NEB SOLN 3 ML NEB NEB SCH ×6 (02:34→23:25)
[2017-08-23 06:25] LABS: BASOPHILS % 0.4 % (0.0-1.0); EOSINOPHILS # (AUTO) 0.2 (0.0-0.4); EOSINOPHILS % 2.6 % (0.0-6.0); HEMATOCRIT 38.9 % (38.2-49.6); HEMOGLOBIN 12.8 g/dL (14.0-18.0); LYMPHOCYTES # (AUTO) 2.4 (1.0-3.2); LYMPHOCYTES % 26.3 % (18.0-39.1); MEAN CORPUSCULAR HEMOGLOBIN 30.3 pg (28-32); MEAN CORPUSCULAR HGB CONC 32.9 g/dL (31-35); MONOCYTES # (AUTO) 1.3 (0.2-0.8); MONOCYTES % 13.9 % (4.4-11.3); NEUTROPHILS # (AUTO) 4.9 (2.1-6.9); NEUTROPHILS % 53.3 % (38.7-80.0); RED BLOOD COUNT 4.23 x10e6/uL (4.3-5.7); RED CELL DISTRIBUTION WIDTH 15.4 % (11.7-14.4)
[2017-08-23] MEDS: CEFTRIAXONE SOD 1 GM VIAL IV SCH (06:28)
[2017-08-23 06:30] LABS: PLATELET COUNT 20 x10e3/uL (140-360)
[2017-08-23 06:45] LABS: ANION GAP 15.7 mmol/L (8-16); CALCIUM 8.2 mg/dL (8.4-10.2); CREATININE, SERUM 1.2 mg/dL (0.72-1.25); POTASSIUM 3.7 mmol/L (3.5-5.1)
[2017-08-23] MEDS: INSULIN REGULAR, HUMAN 100 UNIT/1 ML 3ML VIAL SQ SCH ×4 (07:46→21:18)
[2017-08-23] MEDS: FUROSEMIDE INJ 10 MG/ML 4 ML VIAL IV SCH ×2 (08:39→21:19)
[2017-08-23] MEDS: ACYCLOVIR SODIUM 750 MG in SODIUM CHLORIDE 0.9% 250ML 250 ML IV SCH (08:39)
[2017-08-23] MEDS: AMPICILLIN SOD 2 GM/NS 100ML 100 ML IV SCH (08:39)
[2017-08-23] MEDS: INSULIN DETEMIR 100 UNIT/ML PEN SQ SCH ×2 (08:40→21:19)
[2017-08-23] MEDS ORDERED: SODIUM CHLORIDE 0.9% 500ML 500 ML ONE (09:07)
[2017-08-23 09:29] LABS: EOSINOPHILS % (MANUAL) 1 % (0-7); LYMPHOCYTES % (MANUAL) 24 % (19-48); MONOCYTES % (MANUAL) 8 % (3.4-9.0); MYELOCYTES % (MANUAL) 1 % (0-0); NEUTROPHILS % (MANUAL) 64 % (40-74); NUCLEATED RED BLOOD CELLS 1
[2017-08-23 09:30] LABS: PLATELET ESTIMATE MARKEDLY DECREASED; RBC MORPHOLOGY COMMENT NORMAL
[2017-08-23 09:31] LABS: ANISOCYTOSIS SLIGHT; PLATELET MORPHOLOGY COMMENT FEW LARGE; TARGET CELLS FEW
[2017-08-23] MEDS: METOPROLOL TARTRATE 50 MG TAB PO SCH ×2 (10:30→21:19)
[2017-08-23] MEDS: DANAZOL 100 MG CAP PO SCH ×3 (13:00→20:52)
--- NOTE | 2017-08-23 14:23 | Diagnostic Imaging Report ---
PROCEDURE: CHEST SINGLE (PORTABLE) COMPARISON: 08/21/2017. INDICATIONS: CHEST TUBE REMOVAL FINDINGS: Unchanged position of right-sided pleural drainage catheter. No pneumothorax or residual pleural effusion. Stable position of right internal jugular central venous catheter with the tip projecting over the superior cavoatrial junction. Lungs are grossly clear. Patchy right lower lobe airspace disease is unchanged. Stable cardiomediastinal contour. CONCLUSION: Stable position of right-sided pleural drainage catheter, without pneumothorax or residual effusion. Dictated by: Spencer Brown M.D. on 08/23/2017 at 14:24 Electronically approved by: Spencer Brown M.D. on 08/23/2017 at 14:24
--- NOTE | 2017-08-23 15:00 | Progress Note ---
DATE: August 23, 2017 PULMONARY MEDICINE PROGRESS NOTE SUBJECTIVE: Mr. Pollock was seen and examined at bedside. He continues to have steady progress. Chest tube in place. Drainage is continuing to slow down. Five liters per minute nasal cannula oxygen at this time. Chest x-ray and CT chest corroborate excellent drainage so far of the pleural effusion. Right lower lobe pneumonitis. Had 1.9 L in and 2.9 L out. REVIEW OF SYSTEMS: No headaches, no rash. OBJECTIVE VITAL SIGNS: Afebrile. Vital signs noted per electronic record. GENERAL: No acute distress, alert and calm. HEENT: Normocephalic, atraumatic. NECK: Supple. Throat midline. LUNGS: Bilateral air entry, decreased breath sounds especially at bases. CARDIOVASCULAR: S1, S2. No murmurs, rubs, or gallops. ABDOMEN: Soft, nontender. EXTREMITIES: No clubbing. No cyanosis. There is 2+ edema, decreasing. INTEGUMENT: No rash, no purpura. LABS: BUN 42, 1.2 creatinine, 2.7 potassium, 9 white count, 39 hematocrit, 20 platelets. IMPRESSION AND PLAN 1. Acute respiratory failure, resolving. 2. Fluid overload. 3. Severe pneumonia. 4. Lymphocytic pleural effusion. 5. Significant hypoxemia, worse today. 6. Acute kidney injury and shock. Both of them are much improved. His oxygen is worsening. He was increased now to 7 L per minute by nasal cannula. The patient remains with a lot of respiratory risks. We did recommend to him to either get VATS versus bronchoscopy of the lung, given the lymphocytic pleural effusion, but not at this time. We will wait for hopeful improvement. Will continue to follow chest tube output at this time. Follow up closely. Continue antibiotics. Job#: [id number]
[2017-08-23] MEDS: VANCOMYCIN 1GM/NS 250 ML 250 ML IV SCH (17:42)
[2017-08-23] MEDS: ALBUTEROL/IPRATROPIUM 3 ML NEB NEB PRN (19:30)
[2017-08-24] VITALS (19 sets, daily range): BP systolic 95–147; BP diastolic 52–79
[2017-08-24] MEDS: ALBUTEROL SULF 0.083% NEB SOLN 3 ML NEB NEB SCH ×6 (02:35→22:55)
[2017-08-24] MEDS: IPRATROPIUM BROMIDE 0.02% 2.5 ML NEB NEB SCH ×6 (02:35→22:55)
[2017-08-24] MEDS: INSULIN REGULAR, HUMAN 100 UNIT/1 ML 3ML VIAL SQ SCH ×4 (05:29→21:06)
[2017-08-24 05:43] LABS: BASOPHILS % 0.3 % (0.0-1.0); EOSINOPHILS # (AUTO) 0.4 (0.0-0.4); EOSINOPHILS % 3.3 % (0.0-6.0); HEMATOCRIT 36.4 % (38.2-49.6); HEMOGLOBIN 12.2 g/dL (14.0-18.0); LYMPHOCYTES # (AUTO) 2.8 (1.0-3.2); LYMPHOCYTES % 21.1 % (18.0-39.1); MEAN CORPUSCULAR HEMOGLOBIN 30.4 pg (28-32); MEAN CORPUSCULAR HGB CONC 33.5 g/dL (31-35); MEAN CORPUSCULAR VOLUME 90.8 fL (81-99); MONOCYTES # (AUTO) 1.5 (0.2-0.8); MONOCYTES % 11.7 % (4.4-11.3); NEUTROPHILS # (AUTO) 7.9 (2.1-6.9); RED BLOOD COUNT 4.01 x10e6/uL (4.3-5.7); RED CELL DISTRIBUTION WIDTH 15.1 % (11.7-14.4)
[2017-08-24 05:49] LABS: PLATELET COUNT 13 x10e3/uL (140-360)
[2017-08-24 06:08] LABS: ALBUMIN 2.3 g/dL (3.5-5.0); ALBUMIN/GLOBULIN RATIO 0.7 (0.8-2.0); ANION GAP 14.1 mmol/L (8-16); CALCIUM 7.9 mg/dL (8.4-10.2); CREATININE, SERUM 1.28 mg/dL (0.72-1.25); POTASSIUM 3.1 mmol/L (3.5-5.1)
[2017-08-24] MEDS ORDERED: POTASSIUM CHLORIDE 20MEQ/100ML 200 ML IV ONE ×2 (07:30→15:00)
[2017-08-24] MEDS ORDERED: MAGNESIUM SULFATE 2GM/50ML 50 ML IV ONE (07:30)
--- NOTE | 2017-08-24 08:21 | Diagnostic Imaging Report ---
EXAMINATION: CHEST SINGLE (PORTABLE) INDICATION: \S\hi flow 02. Back Pain. Pneumonia. COMPARISON: Chest x-ray 08/23/2017. FINDINGS: AP view TUBES and LINES: Right IJ central venous catheter with tip in the right atrium is unchanged. LUNGS: Lungs are not well inflated. There are bibasilar atelectasis, especially in the right lung base. PLEURA: Tiny right pleural effusion. HEART AND MEDIASTINUM: Cardiac size is mildly enlarged. BONES AND SOFT TISSUES: No acute osseous lesion. Soft tissues are unremarkable. UPPER ABDOMEN: No free air under the diaphragm. IMPRESSION: Unchanged hypoinflated lungs with bibasilar atelectasis. Tiny right pleural effusion. Signed by: Dr. Abraham Ambrose M.D. on 08/24/2017 8:18 AM
[2017-08-24] MEDS: AZATHIOPRINE 50 MG TAB PO SCH ×2 (08:26→09:00)
[2017-08-24] MEDS: DANAZOL 100 MG CAP PO SCH ×4 (08:26→21:05)
[2017-08-24] MEDS: FUROSEMIDE INJ 10 MG/ML 4 ML VIAL IV SCH ×2 (08:26→21:05)
[2017-08-24] MEDS: ACYCLOVIR SODIUM 750 MG in SODIUM CHLORIDE 0.9% 250ML 250 ML IV SCH ×3 (08:26→22:42)
[2017-08-24] MEDS: AMPICILLIN SOD 2 GM/NS 100ML 100 ML IV SCH ×2 (08:26→17:07)
[2017-08-24] MEDS: INSULIN DETEMIR 100 UNIT/ML PEN SQ SCH ×2 (08:27→21:07)
[2017-08-24] MEDS ORDERED: SODIUM CHLORIDE 0.9% 250ML 250 ML ONE (08:28)
[2017-08-24] MEDS: METOPROLOL TARTRATE 50 MG TAB PO SCH ×2 (09:56→22:42)
[2017-08-24] MEDS: CEFTRIAXONE SOD 1 GM VIAL IV SCH ×2 (11:08→22:42)
[2017-08-24 12:42] LABS: EOSINOPHILS % (MANUAL) 1 % (0-7); LYMPHOCYTES % (MANUAL) 27 % (19-48); MONOCYTES % (MANUAL) 10 % (3.4-9.0); NEUTROPHILS % (MANUAL) 61 % (40-74); NUCLEATED RED BLOOD CELLS 3; PLATELET ESTIMATE MARKEDLY DECREASED; PLATELET MORPHOLOGY COMMENT NORMAL; RBC MORPHOLOGY COMMENT NORMAL
--- NOTE | 2017-08-24 14:55 | Progress Note ---
DATE: Mr. Pollock is doing better. He is alert and oriented. There is no new complaints. REVIEW OF SYSTEMS: Otherwise negative. PHYSICAL EXAMINATION GENERAL: He is currently alert and oriented. Does not seem in acute distress. VITAL SIGNS: Stable and afebrile. HEENT: Normal. NECK: Supple. CHEST: Few crackles. He has a right chest tube. CORE: S1 and S2. No murmurs. ABDOMEN: Soft. Bowel sounds present. EXTREMITIES: No edema. SKIN: No rash. IMPRESSION 1. The patient has sepsis, resolved. 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 Will treat him empirically. The plan is to finish acyclovir for 14 days, ampicillin for 3 weeks, Rocephin for 2 weeks, vancomycin for 2 weeks. 3. Pneumonia, resolving. 4. Lymphocytic pleural effusion. 5. Acute tubular necrosis, resolving: Will improve his kidney function. 6. Idiopathic thrombocytopenia purpura. 7. Will follow. Job#: [id number] EFRA
[2017-08-24] MEDS ORDERED: FUROSEMIDE INJ 10 MG/ML 4 ML VIAL IV ONE (16:00)
[2017-08-24] MEDS ORDERED: IMMUNE GLOBULIN IV SCH (16:00)
[2017-08-24] MEDS: VANCOMYCIN 1GM/NS 250 ML 250 ML IV SCH (16:02)
[2017-08-24] MEDS: IMMUNE GLOBULIN IV SCH (17:22)
[2017-08-24 18:48] LABS: ANION GAP 13.4 mmol/L (8-16); CREATININE, SERUM 1.4 mg/dL (0.72-1.25); POTASSIUM 3.4 mmol/L (3.5-5.1)
[2017-08-24] MEDS: ACETAMINOPHEN/CODEINE 300MG - 30MG TAB PO PRN (20:18)
[2017-08-25] VITALS (7 sets, daily range): BP systolic 130–156; BP diastolic 63–87
[2017-08-25] MEDS: AMPICILLIN SOD 2 GM/NS 100ML 100 ML IV SCH ×4 (00:45→17:10)
[2017-08-25] MEDS: ALBUTEROL SULF 0.083% NEB SOLN 3 ML NEB NEB SCH ×6 (02:30→23:35)
[2017-08-25] MEDS: IPRATROPIUM BROMIDE 0.02% 2.5 ML NEB NEB SCH ×6 (02:30→23:35)
[2017-08-25 06:03] LABS: BASOPHILS # (AUTO) 0.1 (0.0-0.1); BASOPHILS % 0.4 % (0.0-1.0); EOSINOPHILS # (AUTO) 0.6 (0.0-0.4); EOSINOPHILS % 4.2 % (0.0-6.0); HEMOGLOBIN 10.9 g/dL (14.0-18.0); LYMPHOCYTES # (AUTO) 3.1 (1.0-3.2); LYMPHOCYTES % 22.6 % (18.0-39.1); MEAN CORPUSCULAR HEMOGLOBIN 30.2 pg (28-32); MEAN CORPUSCULAR VOLUME 91.4 fL (81-99); MONOCYTES # (AUTO) 1.7 (0.2-0.8); MONOCYTES % 12.2 % (4.4-11.3); NEUTROPHILS % 57.9 % (38.7-80.0); RED BLOOD COUNT 3.61 x10e6/uL (4.3-5.7); RED CELL DISTRIBUTION WIDTH 15.3 % (11.7-14.4)
[2017-08-25 06:14] LABS: PLATELET COUNT 9 x10e3/uL (140-360)
[2017-08-25 06:30] LABS: ALBUMIN 2.1 g/dL (3.5-5.0); ALBUMIN/GLOBULIN RATIO 0.6 (0.8-2.0); ANION GAP 12.3 mmol/L (8-16); CALCIUM 7.8 mg/dL (8.4-10.2); CREATININE, SERUM 1.37 mg/dL (0.72-1.25); PHOSPHORUS 3.6 MG/DL (2.3-4.7); POTASSIUM 3.3 mmol/L (3.5-5.1)
[2017-08-25 06:44] LABS: MAGNESIUM 1.1 MG/DL (1.3-2.1)
[2017-08-25] MEDS ORDERED: POTASSIUM CHLORIDE 20 MEQ TAB CR PO STA (07:26)
[2017-08-25] MEDS ORDERED: MAGNESIUM SULFATE 2GM/50ML 50 ML IV ONE (07:30)
[2017-08-25] MEDS: INSULIN REGULAR, HUMAN 100 UNIT/1 ML 3ML VIAL SQ SCH ×4 (07:30→21:02)
[2017-08-25] MEDS: FUROSEMIDE INJ 10 MG/ML 4 ML VIAL IV SCH ×2 (08:30→21:01)
[2017-08-25] MEDS: DANAZOL 100 MG CAP PO SCH ×4 (08:30→21:01)
[2017-08-25] MEDS: INSULIN DETEMIR 100 UNIT/ML PEN SQ SCH ×2 (08:30→21:02)
[2017-08-25] MEDS: ACYCLOVIR SODIUM 750 MG in SODIUM CHLORIDE 0.9% 250ML 250 ML IV SCH ×3 (08:30→22:50)
[2017-08-25] MEDS: AZATHIOPRINE 50 MG TAB PO SCH (09:00)
[2017-08-25] MEDS: CEFTRIAXONE SOD 1 GM VIAL IV SCH ×2 (10:11→22:47)
[2017-08-25] MEDS: METOPROLOL TARTRATE 50 MG TAB PO SCH ×2 (10:11→22:47)
[2017-08-25 10:41] LABS: EOSINOPHILS % (MANUAL) 4 % (0-7); LYMPHOCYTES % (MANUAL) 27 % (19-48); MONOCYTES % (MANUAL) 10 % (3.4-9.0); NEUTROPHILS % (MANUAL) 59 % (40-74)
[2017-08-25 10:42] LABS: PLATELET ESTIMATE MARKEDLY DECREASED; PLATELET MORPHOLOGY COMMENT NORMAL; RBC MORPHOLOGY COMMENT NORMAL
[2017-08-25] MEDS ORDERED: SALINE 0.65% NAS SOLN 1 SPRAY BTL PRN (13:15)
--- NOTE | 2017-08-25 14:18 | Progress Note ---
DATE: August 25, 2017 PULMONARY MEDICINE PROGRESS NOTE SUBJECTIVE: Mr. Pollock was seen and examined at bedside. In 2.9 L and 1 L out recorded. One bowel movement. Oxygen saturation 98%. Currently, on 6 L per minute nasal cannula oxygen. The patient remains mostly a mouth breather. His platelets are coming down and becoming critical. REVIEW OF SYSTEMS: No headaches. No new rash. OBJECTIVE VITALS: Afebrile. Vital signs noted per electronic record. GENERAL: In no acute distress. Alert and calm. HEENT: Normocephalic and atraumatic. NECK: Supple. Throat midline. LUNGS: Bilateral air entry. Few rhonchi. Decreased breath sounds at the base. CARDIOVASCULAR: S1 and S2. No murmurs, rubs or gallops. ABDOMEN: Soft and nontender. EXTREMITIES: No clubbing. No cyanosis. There is 2+ edema. INTEGUMENT: No rash. No purpura. LABS: Potassium 3.2, creatinine 1.4. White count 14, hematocrit 33 and platelets 9. Magnesium 1.1. IMPRESSION AND PLAN 1. Chronic allergies, rhino-sinus congestion. 2. Critical thrombocytopenia, worsening. 3. Hypokalemia and hypomagnesemia. 4. Admitted with pneumonia. 5. Pleural effusion, status post drainage. 6. Wkili-ph-udxzbap kidney failure. Repeat labs in the morning. Replete potassium and magnesium. will be given intravenously for the worsening and critical platelets. The patient remains on Benadryl at this time. Continue Lasix. Get pro and negative balance. In the future, consider either VATS surgery versus bronchoscopy, but now is not the time. Try to open up the patient's nose with nasal sprays to help bring down the oxygen he needs. Job#: [id number] EFRA
[2017-08-25] MEDS: VANCOMYCIN 1GM/NS 250 ML 250 ML IV SCH (15:01)
[2017-08-25] MEDS: IMMUNE GLOBULIN IV SCH (16:26)
[2017-08-25] MEDS: FLUTICASONE PROPIONATE NASAL SPRAY NS SCH (17:10)
[2017-08-25] MEDS: ACETAMINOPHEN/CODEINE 300MG - 30MG TAB PO PRN (22:50)
[2017-08-26 00:11] VITALS: BP 147/75
[2017-08-26] MEDS: AMPICILLIN SOD 2 GM/NS 100ML 100 ML IV SCH ×4 (00:30→18:44)
[2017-08-26] MEDS: IPRATROPIUM BROMIDE 0.02% 2.5 ML NEB NEB SCH ×6 (03:25→23:20)
[2017-08-26] MEDS: ALBUTEROL SULF 0.083% NEB SOLN 3 ML NEB NEB SCH ×6 (03:25→23:20)
[2017-08-26 04:47] VITALS: BP 133/69
[2017-08-26] MEDS: ACYCLOVIR SODIUM 750 MG in SODIUM CHLORIDE 0.9% 250ML 250 ML IV SCH ×3 (06:29→22:23)
[2017-08-26 08:00] VITALS: BP 155/87
[2017-08-26] MEDS: INSULIN REGULAR, HUMAN 100 UNIT/1 ML 3ML VIAL SQ SCH ×4 (08:00→21:30)
[2017-08-26 08:41] LABS: BASOPHILS % 0.3 % (0.0-1.0); EOSINOPHILS # (AUTO) 0.5 (0.0-0.4); EOSINOPHILS % 3.8 % (0.0-6.0); HEMOGLOBIN 10.7 g/dL (14.0-18.0); LYMPHOCYTES # (AUTO) 2.8 (1.0-3.2); LYMPHOCYTES % 19.8 % (18.0-39.1); MEAN CORPUSCULAR HEMOGLOBIN 30.6 pg (28-32); MEAN CORPUSCULAR HGB CONC 33.4 g/dL (31-35); MEAN CORPUSCULAR VOLUME 91.4 fL (81-99); MONOCYTES % 14.1 % (4.4-11.3); NEUTROPHILS # (AUTO) 8.4 (2.1-6.9); NEUTROPHILS % 60.6 % (38.7-80.0); RED CELL DISTRIBUTION WIDTH 15.5 % (11.7-14.4)
[2017-08-26] MEDS ORDERED: POTASSIUM CHLORIDE 20MEQ/100ML 20 MEQ in POTASSIUM CHLORIDE 20MEQ/100ML 100 ML IV ONE (08:49)
[2017-08-26 08:52] LABS: PLATELET COUNT 15 x10e3/uL (140-360)
[2017-08-26 08:57] LABS: ANION GAP 11.3 mmol/L (8-16); BLOOD UREA NITROGEN 24 mg/dL (7-26); BUN/CREATININE RATIO 22 (6-25); CARBON DIOXIDE 35 mmol/L (22-29); CHLORIDE 97 mmol/L (98-107); EST GLOMERULAR FILTRATION RATE > 60 ML/MIN (60-); GLUCOSE 143 mg/dL (74-118); POTASSIUM 3.3 mmol/L (3.5-5.1); SODIUM 140 mmol/L (136-145)
[2017-08-26] MEDS: INSULIN DETEMIR 100 UNIT/ML PEN SQ SCH ×2 (09:00→21:45)
[2017-08-26] MEDS ORDERED: POTASSIUM CHLORIDE 20MEQ/100ML 100 ML IV ONE (09:00)
[2017-08-26] MEDS: FUROSEMIDE INJ 10 MG/ML 4 ML VIAL IV SCH ×2 (09:24→21:02)
[2017-08-26] MEDS: DANAZOL 100 MG CAP PO SCH ×4 (09:28→21:02)
[2017-08-26] MEDS: CEFTRIAXONE SOD 1 GM VIAL IV SCH ×2 (09:28→21:02)
[2017-08-26] MEDS: AZATHIOPRINE 50 MG TAB PO SCH (09:28)
[2017-08-26] MEDS: FLUTICASONE PROPIONATE NASAL SPRAY NS SCH ×2 (09:28→16:30)
[2017-08-26] MEDS: METOPROLOL TARTRATE 50 MG TAB PO SCH ×2 (10:33→21:02)
[2017-08-26] MEDS ORDERED: POTASSIUM CHLORIDE 20MEQ/100ML 200 ML IV ONE (10:45)
[2017-08-26 11:49] VITALS: BP 156/78
[2017-08-26 11:59] LABS: ANISOCYTOSIS SLIGHT; EOSINOPHILS % (MANUAL) 2 % (0-7); HYPOCHROMASIA SLIGHT; LYMPHOCYTES % (MANUAL) 24 % (19-48); METAMYELOCYTES % (MANUAL) 1 % (0-0); MONOCYTES % (MANUAL) 5 % (3.4-9.0); NEUTROPHILS % (MANUAL) 68 % (40-74); PLATELET ESTIMATE MARKEDLY DECREASED; RBC MORPHOLOGY COMMENT NORMAL
[2017-08-26 12:00] LABS: PLATELET MORPHOLOGY COMMENT FEW LARGE; SMUDGE CELLS FEW
[2017-08-26] MEDS ORDERED: SODIUM CHLORIDE 0.9% 250ML 250 ML ONE ×3 (13:55→20:42)
[2017-08-26 16:00] VITALS: BP 164/101
[2017-08-26] MEDS: VANCOMYCIN 1GM/NS 250 ML 250 ML IV SCH (17:00)
[2017-08-26] MEDS ORDERED: LIDOCAINE HCL 2% LOCAL INJ 5 ML SDV VIAL INJ ONE (19:45)
[2017-08-26] MEDS ORDERED: PROPOFOL IV EMULSION 10 MG/ML 20 ML VIAL ONE (19:45)
[2017-08-26] MEDS ORDERED: SEVOFLURANE INHAL SOLN 250 ML PEN BTL ONE (19:45)
[2017-08-26 20:00] VITALS: BP 170/84
[2017-08-26] MEDS: IMMUNE GLOBULIN IV SCH (20:00)
[2017-08-26] MEDS: ACETAMINOPHEN/CODEINE 300MG - 30MG TAB PO PRN (23:15)
[2017-08-27] VITALS: BP 149/60
[2017-08-27] MEDS: AMPICILLIN SOD 2 GM/NS 100ML 100 ML IV SCH ×4 (00:51→18:04)
--- NOTE | 2017-08-27 00:59 | Progress Note ---
DATE: August 26, 2017 PULMONARY MEDICINE PROGRESS NOTE SUBJECTIVE: Mr. Pollock was seen and examined at bedside. He continues to have decreasing and critical platelets. Ruggiero with good urine output. He was able to mobilize a little bit better today with less assist. We discussed with him the need for bronchoscopy. Discussed with hematology, they will assist in optimizing the patient's coagulopathy and low platelets. REVIEW OF SYSTEMS: No bleeding, no rash. OBJECTIVE: VITAL SIGNS: Afebrile, vital signs noted per electronic record. GENERAL: In no acute distress, alert and calm. HEENT: Normocephalic, atraumatic. NECK: Supple. Throat midline. LUNGS: Bilateral air entry, decreased breath sounds at base. CARDIOVASCULAR: S1, S2. No murmurs, rubs, or gallops. ABDOMEN: Soft, nontender. EXTREMITIES: No clubbing, no cyanosis, there is 2+ edema in the legs. INTEGUMENT: No rash, no purpura. LABS: 3.3 potassium, 24 BUN, 1.1 creatinine. 14 white count, 32 hematocrit, platelets 15,000. IMPRESSION AND PLAN: 1. Acute respiratory failure, intubated and extubated. 2. Pneumonia, acute. 3. Lymphocytic pleural effusion, under investigation. 4. History of idiopathic thrombocytopenic purpura. 5. 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 6. Acute tubular necrosis, acute kidney injury, resolving. 7. Shock, resolved. Patient tentatively for bronchoscopy tomorrow 10 a.m. Platelets are given. NPO after midnight. Will follow up serologies to assess the etiology of the infection. Will follow along closely. Job#: [id number]
[2017-08-27] MEDS: ALBUTEROL SULF 0.083% NEB SOLN 3 ML NEB NEB SCH ×6 (03:38→23:40)
[2017-08-27] MEDS: IPRATROPIUM BROMIDE 0.02% 2.5 ML NEB NEB SCH ×6 (03:38→23:40)
[2017-08-27 04:00] VITALS: BP 178/85
[2017-08-27] MEDS: ACYCLOVIR SODIUM 750 MG in SODIUM CHLORIDE 0.9% 250ML 250 ML IV SCH ×3 (06:50→22:11)
[2017-08-27 06:51] LABS: BASOPHILS % 0.4 % (0.0-1.0); EOSINOPHILS # (AUTO) 0.4 (0.0-0.4); EOSINOPHILS % 4.1 % (0.0-6.0); HEMATOCRIT 30.2 % (38.2-49.6); HEMOGLOBIN 10.1 g/dL (14.0-18.0); LYMPHOCYTES # (AUTO) 2.2 (1.0-3.2); LYMPHOCYTES % 23.5 % (18.0-39.1); MEAN CORPUSCULAR HEMOGLOBIN 30.7 pg (28-32); MEAN CORPUSCULAR HGB CONC 33.4 g/dL (31-35); MEAN CORPUSCULAR VOLUME 91.8 fL (81-99); MONOCYTES # (AUTO) 1.5 (0.2-0.8); NEUTROPHILS % 54.3 % (38.7-80.0); PLATELET COUNT 86 x10e3/uL (140-360); RED BLOOD COUNT 3.29 x10e6/uL (4.3-5.7); RED CELL DISTRIBUTION WIDTH 15.5 % (11.7-14.4)
[2017-08-27 07:11] LABS: INR 1.14; PARTIAL THROMBOPLASTIN TIME 24.9 seconds (23.8-35.5); PROTHROMBIN TIME 13.7 seconds (11.9-14.5)
[2017-08-27] MEDS ORDERED: SODIUM CHLORIDE 0.9% 250ML 250 ML ONE (07:24)
[2017-08-27 07:26] LABS: ANION GAP 9.6 mmol/L (8-16); BLOOD UREA NITROGEN 17 mg/dL (7-26); BUN/CREATININE RATIO 16 (6-25); CALCIUM 8.2 mg/dL (8.4-10.2); CARBON DIOXIDE 34 mmol/L (22-29); CHLORIDE 96 mmol/L (98-107); CREATININE, SERUM 1.08 mg/dL (0.72-1.25); EST GLOMERULAR FILTRATION RATE > 60 ML/MIN (60-); GLUCOSE 160 mg/dL (74-118); POTASSIUM 3.6 mmol/L (3.5-5.1); SODIUM 136 mmol/L (136-145)
[2017-08-27] MEDS: INSULIN REGULAR, HUMAN 100 UNIT/1 ML 3ML VIAL SQ SCH ×4 (07:30→22:12)
[2017-08-27 07:42] LABS: MAGNESIUM 1.2 MG/DL (1.3-2.1)
[2017-08-27 08:00] VITALS: BP 168/84
[2017-08-27] MEDS ORDERED: LIDOCAINE HCL 2% 30 ML TUBE ONE (08:17)
[2017-08-27] MEDS ORDERED: LIDOCAINE HCL 4% 50 ML BTL ONE (08:17)
[2017-08-27] MEDS: FLUTICASONE PROPIONATE NASAL SPRAY NS SCH ×2 (09:00→17:00)
[2017-08-27] MEDS: DANAZOL 100 MG CAP PO SCH ×4 (09:00→22:00)
[2017-08-27] MEDS: FUROSEMIDE INJ 10 MG/ML 4 ML VIAL IV SCH ×2 (09:00→22:08)
[2017-08-27] MEDS: CEFTRIAXONE SOD 1 GM VIAL IV SCH ×2 (09:00→22:08)
[2017-08-27] MEDS: INSULIN DETEMIR 100 UNIT/ML PEN SQ SCH ×2 (09:00→22:12)
--- NOTE | 2017-08-27 11:27 | Diagnostic Imaging Report ---
PROCEDURE: A single AP view of the chest. COMPARISON: Patients [facility], , CHEST SINGLE (PORTABLE), 08/24/2017, 6:36. INDICATIONS: RIGHT SIDE BIOPSY TODAY FINDINGS: Lines/tubes: Right IJ central venous catheter with tip overlying the right atrium. Right-sided pleural drainage catheter has been removed. Lungs: Right lower lobe airspace opacity. Mild pulmonary vascular congestion. Pleura: There is no pneumothorax. Heart and mediastinum: The heart and the mediastinum are unremarkable. Bones: No acute bony abnormality. IMPRESSION: Right lower lobe airspace opacity. Jose Alejandro Doshi D.O. Dictated by: Jose Alejandro Doshi D.O. on 08/27/2017 at 11:28 Electronically approved by: Jose Alejandro Doshi D.O. on 08/27/2017 at 11:28
--- NOTE | 2017-08-27 11:37 | Progress Note ---
DATE: August 27, 2017 PULMONARY MEDICINE PROGRESS NOTE SUBJECTIVE: Mr. Pollock was seen and examined at bedside. He continues to have slow progress. He received more platelet transfusions yesterday. Platelets have since come up to 86,000. There was no clinical bleeding. Patient remains weak and continues to need assistance with mobilization. No new fevers. REVIEW OF SYSTEMS: No headaches, no rash. OBJECTIVE VITALS: Afebrile, vital signs noted per electronic record. GENERAL: In no acute distress, alert and calm. HEENT: Normocephalic, atraumatic. NECK: Supple. Throat midline. LUNGS: Bilateral air entry, decreased breath sounds at base, rare rhonchi. CARDIOVASCULAR: S1, S2. No murmurs, rubs, or gallops. ABDOMEN: Soft, nontender. EXTREMITIES: No clubbing, no cyanosis. There is still 2+ edema. INTEGUMENT: No rash, no purpura. LABS: Potassium 3.6, 17 BUN, 1.08 creatinine, 9 white count, 30 hematocrit, 86 platelets. IMPRESSION AND PLAN 1. Acute pneumonia. 2. Lymphocytic pleural effusion. 3. Acute kidney injury, resolving slowly but resolving well. 4. Shock, resolving. 5. Thrombocytopenia, critical, multifactorial. 6. Weakness. Bronchoscopy today. If there is any high-grade infection, bronchoscopy should have sensitivity to find it. Patient will need chest radiography in the future to ensure opacities resolve appropriately. Follow up closely on antibiotics as per ID specialist. Patient remains on medicines including immunosuppressants at this time. Continue PT and OT and strengthen the patient. Job#: [id number]
[2017-08-27 12:00] VITALS: BP 148/66
[2017-08-27] MEDS ORDERED: FENTANYL CITRATE/PF 100MCG/2 ML INJ ONE (12:05)
[2017-08-27] MEDS: METOPROLOL TARTRATE 50 MG TAB PO SCH ×2 (12:25→22:08)
[2017-08-27] MEDS: AZATHIOPRINE 50 MG TAB PO SCH (12:25)
--- NOTE | 2017-08-27 13:03 | Operative Report ---
DATE OF PROCEDURE: August 27, 2017 PROCEDURE PERFORMED 1. Diagnostic bronchoscopy. 2. Bronchial washes. 3. Bronchioalveolar lavage right lower lobe. 4. Transbronchial lung biopsies right lower lobe. INDICATION: Pneumonia, lymphocytic pleural effusion. ANESTHESIA: Per Anesthesiology. CONSENT: Informed consent taken from patient. OPERATIVE FINDINGS: Mr. Pollock was placed in bed with the LMA by Anesthesia. Patient had the bronchoscope inserted towards the vocal cords. Local lidocaine was instilled here. The bronchoscope was entered into the tracheobronchial tree. Normal airways configuration was noted with no endobronchial masses. Patient had washes performed as there were small amounts of moderately thick mucoid secretions spread throughout the entire airways. These secretions were removed. Patient had BAL performed of right lower lobe anterior segment. Patient then had forceps biopsies performed of right lower lobe lateral segment. Hemostasis was noted to be achieved. Thereafter, the bronchoscope was removed and patient was allowed to recover with Anesthesia. The BAL specimen demonstrated no evidence of proteinosis, but there was mildly red output but it was not progressive with serial aliquots. COMPLICATIONS: None. ESTIMATED BLOOD LOSS: Minimal. IMPRESSION: Unremarkable bronchoscopy. Status post bronchioalveolar lavage, washes, transbronchial lung biopsy. RECOMMENDATION: Follow up for findings. Follow up in clinic in 2 weeks for results after discharge. Job#: [id number] EV
[2017-08-27 14:21] LABS: BODY FLUID APPEARANCE CLOUDY; BODY FLUID COLOR RED; BODY FLUID TYPE BRONCHIAL LAVAGE
[2017-08-27 14:22] LABS: RBC,BODY FLUID 3767 cells/uL; WBC,BODY FLUID 545 cells/uL
[2017-08-27 14:25] LABS: LYMPHOCYTES,BODY FLUID 61 %; MONO/MACROPHG,BODY FLUID 21 %; NEUTROPHILS,BODY FLUID 18 %
[2017-08-27 16:43] VITALS: BP 132/59
[2017-08-27] MEDS: VANCOMYCIN 1GM/NS 250 ML 250 ML IV SCH (16:45)
[2017-08-27] MEDS: IMMUNE GLOBULIN IV SCH (17:49)
[2017-08-27] MEDS: ACETAMINOPHEN 325 MG TAB PO PRN (22:30)
[2017-08-28] MEDS: AMPICILLIN SOD 2 GM/NS 100ML 100 ML IV SCH ×4 (00:35→18:00)
[2017-08-28] MEDS: ALBUTEROL SULF 0.083% NEB SOLN 3 ML NEB NEB SCH ×6 (04:00→23:40)
[2017-08-28] MEDS: IPRATROPIUM BROMIDE 0.02% 2.5 ML NEB NEB SCH ×6 (04:00→23:40)
[2017-08-28] MEDS: ACYCLOVIR SODIUM 750 MG in SODIUM CHLORIDE 0.9% 250ML 250 ML IV SCH ×2 (06:06→14:48)
[2017-08-28] MEDS: INSULIN REGULAR, HUMAN 100 UNIT/1 ML 3ML VIAL SQ SCH ×4 (07:38→21:00)
[2017-08-28 07:42] VITALS: BP 137/73
[2017-08-28] MEDS: FUROSEMIDE INJ 10 MG/ML 4 ML VIAL IV SCH ×2 (09:04→21:29)
[2017-08-28] MEDS: FLUTICASONE PROPIONATE NASAL SPRAY NS SCH ×2 (09:05→17:07)
[2017-08-28] MEDS: DANAZOL 100 MG CAP PO SCH ×4 (09:05→21:29)
[2017-08-28] MEDS: AZATHIOPRINE 50 MG TAB PO SCH (09:05)
[2017-08-28] MEDS: CEFTRIAXONE SOD 1 GM VIAL IV SCH ×2 (09:05→22:53)
[2017-08-28] MEDS: INSULIN DETEMIR 100 UNIT/ML PEN SQ SCH (09:09)
[2017-08-28] MEDS: METOPROLOL TARTRATE 50 MG TAB PO SCH ×2 (10:50→22:54)
--- NOTE | 2017-08-28 11:41 | Progress Note ---
DATE: August 28, 2017 PULMONARY MEDICINE PROGRESS NOTE SUBJECTIVE: Mr. Pollock was seen and examined at bedside. He continues to have low . He is still 2-person assist to get out of bed and to get to the restroom. He is eating well. He is having bowel movements. No complications after bronchoscopy yesterday. REVIEW OF SYSTEMS: No headaches, no rash. OBJECTIVE VITAL SIGNS: Afebrile, vital signs noted per the chart record. GENERAL: In no acute distress, alert and calm. HEENT: Normocephalic, atraumatic. NECK: Supple. Throat midline. LUNGS: Bilateral air entry, few rhonchi. CARDIOVASCULAR: S1, S2. No murmurs, rubs, or gallops. ABDOMEN: Soft, nontender. EXTREMITIES: No clubbing, no cyanosis. There is 2+ edema. INTEGUMENT: No rash, no purpura. IMPRESSION 1. Acute pneumonia. 2. Lymphocytic pleural effusion. 3. Acute respiratory failure, resolved. 4. Septic shock, resolved. 5. Acute kidney injury, resolving, also underlying mild chronic kidney disease. 6. Idiopathic thrombocytopenic purpura. 7. Postsplenectomy state. PLAN: Continue close followup. Help patient strengthen. Continue PT and OT. Continue Lasix slowly to get him fluid negative. Offload legs to gravity for the swelling. Antibiotics for pneumonia. We will follow up the bronchoscopy findings and we will follow up the pleural effusion findings from thoracentesis that was previous. Job#: [id number] ADOLFO
[2017-08-28 13:05] VITALS: BP 158/80
[2017-08-28] MEDS: VANCOMYCIN 1GM/NS 250 ML 250 ML IV SCH (16:00)
[2017-08-28 17:11] VITALS: BP 137/73
[2017-08-28] MEDS: IMMUNE GLOBULIN IV SCH (17:15)
[2017-08-28 17:30] VITALS: BP 154/89
[2017-08-28 20:00] VITALS: BP 160/78
[2017-08-28 20:24] VITALS: BP 160/78
[2017-08-28] MEDS ORDERED: TERAZOSIN HCL 1 MG CAP PO SCH (21:00)
[2017-08-29 00:47] VITALS: BP 137/65
[2017-08-29] MEDS: ACYCLOVIR SODIUM 750 MG in SODIUM CHLORIDE 0.9% 250ML 250 ML IV SCH ×2 (01:08→07:06)
[2017-08-29] MEDS: ALBUTEROL SULF 0.083% NEB SOLN 3 ML NEB NEB SCH ×4 (02:20→15:00)
[2017-08-29] MEDS: IPRATROPIUM BROMIDE 0.02% 2.5 ML NEB NEB SCH ×4 (02:20→15:00)
[2017-08-29] MEDS: INSULIN DETEMIR 100 UNIT/ML PEN SQ SCH ×2 (02:41→09:10)
[2017-08-29] MEDS: AMPICILLIN SOD 2 GM/NS 100ML 100 ML IV SCH ×3 (05:30→12:00)
[2017-08-29 06:01] VITALS: BP 126/58
[2017-08-29] MEDS: INSULIN REGULAR, HUMAN 100 UNIT/1 ML 3ML VIAL SQ SCH ×2 (07:30→11:30)
[2017-08-29 07:46] VITALS: BP 151/85
[2017-08-29] MEDS: AZATHIOPRINE 50 MG TAB PO SCH (09:09)
[2017-08-29] MEDS: FLUTICASONE PROPIONATE NASAL SPRAY NS SCH (09:09)
[2017-08-29] MEDS: DANAZOL 100 MG CAP PO SCH ×2 (09:09→13:00)
[2017-08-29] MEDS: FUROSEMIDE INJ 10 MG/ML 4 ML VIAL IV SCH (09:09)
[2017-08-29] MEDS: CEFTRIAXONE SOD 1 GM VIAL IV SCH (10:00)
[2017-08-29] MEDS: METOPROLOL TARTRATE 50 MG TAB PO SCH (10:30)
[2017-08-29 12:18] VITALS: BP 135/79
--- NOTE | 2017-08-29 12:25 | Progress Note ---
DATE: August 29, 2017 PULMONARY MEDICINE PROGRESS NOTE SUBJECTIVE: Mr. Pollock was seen and examined at bedside. The patient continues to have a lot of weakness. It still took a lot of assistance to get him up. However, he was able to walk into the hallway today with a walker. The patient remains tolerating diuretics with sustained blood pressure. REVIEW OF SYSTEMS: No bleeding. No double vision. OBJECTIVE VITAL SIGNS: Afebrile, vital signs noted per the electronic record. GENERAL: In no acute distress, alert and calm. HEENT: Normocephalic, atraumatic. NECK: Supple. Throat midline. LUNGS: Bilateral air entry, decreased breath sounds at the bases, a few rhonchi. CARDIOVASCULAR: S1, S2. No murmurs, rubs, or gallops. ABDOMEN: Soft, nontender. EXTREMITIES: No clubbing, no cyanosis. There is still 2+ edema. INTEGUMENT: No rash, no purpura. IMPRESSION 1. Severe pneumonia. 2. Acute respiratory failure, resolving. 3. Continued hypoxemia. 4. Weakness. 5. Acute kidney injury, resolving. 6. Shock, resolving. 7. Neutrophilic pleural effusion. 8. History of idiopathic thrombocytopenic purpura and chronic immunosuppressed state. PLAN: Continue to follow. PT and OT have to be continued. Follow the bronchoscopy results. For now, he will continue on the new immunosuppressants and aggressive treatment for the ITP as the platelets keep falling. Will follow up closely. Continue diuretics. The patient is ready for transfer to LT[facility]. Job#: [id number]
[2017-08-29 16:00] VITALS: BP 139/70
== END 2017-08-29 16:23 | DRG 853 ==
LOC: ER 13:25 → ERHOLD 18:47 → MED/SURG3 23:41 → IMCU 08-16 18:58 → ICU 08-17 15:37 → IMCU 08-24 19:28 → MED/SURG2 08-26 13:07
PROC: 5A1945Z Respiratory Ventilation, 24-96 Consecutive Hours (ICD-10-PCS; principal; 2017-08-17)
PROC: 0BH17EZ Insertion of Endotracheal Airway into Trachea, Via Natural or Artificial Opening (ICD-10-PCS; 2017-08-17)
PROC: 0W9930Z Drainage of Right Pleural Cavity with Drainage Device, Percutaneous Approach (ICD-10-PCS; 2017-08-17)
PROC: 30233L1 Transfusion of Nonautologous Fresh Plasma into Peripheral Vein, Percutaneous Approach (ICD-10-PCS; 2017-08-17)
PROC: 30233R1 Transfusion of Nonautologous Platelets into Peripheral Vein, Percutaneous Approach (ICD-10-PCS; 2017-08-17)
PROC: 30233K1 Transfusion of Nonautologous Frozen Plasma into Peripheral Vein, Percutaneous Approach (ICD-10-PCS; 2017-08-18)
PROC: 0BBF8ZX Excision of Right Lower Lung Lobe, Via Natural or Artificial Opening Endoscopic, Diagnostic (ICD-10-PCS; 2017-08-27)
PROC: 0B968ZX Drainage of Right Lower Lobe Bronchus, Via Natural or Artificial Opening Endoscopic, Diagnostic (ICD-10-PCS; 2017-08-27)
DX: A41.9 Sepsis, unspecified organism (principal); J96.02 Acute respiratory failure with hypercapnia; N17.0 Acute kidney failure with tubular necrosis; A39.81 Meningococcal encephalitis; R65.21 Severe sepsis with septic shock; J18.9 Pneumonia, unspecified organism; D69.3 Immune thrombocytopenic purpura; E87.4 Mixed disorder of acid-base balance; J91.8 Pleural effusion in other conditions classified elsewhere; Z68.42 Body mass index [BMI] 45.0-49.9, adult; E11.22 Type 2 diabetes mellitus with diabetic chronic kidney disease; I12.9 Hypertensive chronic kidney disease with stage 1 through stage 4 chronic kidney disease, or unspecified chronic kidney disease; E66.9 Obesity, unspecified; N18.3 Chronic kidney disease, stage 3 (moderate); E21.0 Primary hyperparathyroidism; Z90.81 Acquired absence of spleen; M47.817 Spondylosis without myelopathy or radiculopathy, lumbosacral region; E11.65 Type 2 diabetes mellitus with hyperglycemia; R63.0 Anorexia; R53.1 Weakness; E87.6 Hypokalemia; E87.70 Fluid overload, unspecified; E83.42 Hypomagnesemia
CPT/HCPCS: 31623; 31625; 32557; 36415; 36556; 36600; 51700; 70450; 71045; 71046; 71250; 72100; 72128; 72131; 74150; 74470; 76770; 76937; 76942; 80048; 80053; 80202; 81001; 81015; 82140; 82150; 82550; 82553; 82805; 82945; 82948; 83605; 83615; 83735; 84100; 84132; 84157; 84165; 84484; 85025; 85049; 85610; 85730; 86635; 86850; 86900; 87040; 87070; 87071; 87086; 87102; 87116; 87205; 87206; 87252; 87254; 87335; 87385; 88112; 88305; 88312; 89051; 93005; 93970; 94002; 94003; 94640; 94660; 96367; 96372; 96376; 97139; 99285; C1729; C1751; J0456; J0696; J1885; J1940; J2001; J2185; J2920; J3370; J3480; J7030; J7040; J7050; J7070; J7799; P9017; P9034